=== PATIENT | female | born 1945 | race Two or more races ===

== ENCOUNTER → 2017-10-10 | Outpatient (CLI) | payer BC ==
[2017-10-10 14:07] LABS: ADD MAN DIFF? NO
[2017-10-10 14:17] LABS: BILIRUBIN,URINE NEGATIVE (NEG); CLARITY,URINE CLEAR; GLUCOSE,URINE NEGATIVE (NEG); NITRITE,URINE NEGATIVE (NEG); PH,URINE 7.5; PROTEIN,URINE NEGATIVE (NEG-TRACE); UROBILINOGEN,URINE 0.2 mg/dL (0.2 mg/dL)
[2017-10-10 14:19] LABS: BASO % 1 % (0-3); EOS # 0.2 x10^3/uL (0.0-0.7); EOS % 3 % (0-3); LYMPH # 1.2 x10^3/uL (1.0-4.8); LYMPH % 18 % (24-48); MEAN CORPUSCULAR HEMOGLOBIN 29 pg (25-35); MEAN CORPUSCULAR HGB CONC 33 g/dL (31-37); MEAN CORPUSCULAR VOLUME 88 fL (79-100); MONO # 0.4 x10^3/uL (0.0-1.1); MONO % 6 % (0-9); NEUT % 73 % (31-73); PLATELET COUNT 232 x10^3/uL (140-400); RED BLOOD COUNT 5.46 x10^6/uL (3.50-5.40); RED CELL DISTRIBUTION WIDTH 14.8 % (11.5-14.5); WHITE BLOOD COUNT 6.8 x10^3/uL (4.0-11.0)
[2017-10-10 14:22] LABS: COLOR,URINE STRAW
[2017-10-10 14:24] LABS: BACTERIA,URINE 0 /HPF (0-FEW); RBC,URINE RARE /HPF (0-2); SQUAMOUS EPITHELIAL CELL,UR OCC /LPF; WBC,URINE 0 /HPF (0-4)
[2017-10-10 14:27] LABS: PARTIAL THROMBOPLASTIN TIME 29 SEC (24-38); PROTHROMBIN TIME PATIENT 12.2 SEC (11.7-14.0)
[2017-10-10 14:35] LABS: ALBUMIN 3.9 g/dL (3.4-5.0); ANION GAP 7 (6-14); BLOOD UREA NITROGEN 18 mg/dL (7-20); CALCIUM 9.4 mg/dL (8.5-10.1); CARBON DIOXIDE 31 mmol/L (21-32); CHLORIDE 101 mmol/L (98-107); CREATININE 0.8 mg/dL (0.6-1.0); GFR 70.9; GLUCOSE 87 mg/dL (70-99); SODIUM 139 mmol/L (136-145)
[2017-10-10 15:28] LABS: SEDIMENTATION RATE 8 (0-25)
== END | disposition home or self-care (01) ==
LOC: SURGPAT 13:22
DX: Z01.818 Encounter for other preprocedural examination (principal); M25.78 Osteophyte, vertebrae
CPT/HCPCS: 71046; 80048; 81001; 82040; 82306; 83036; 85025; 85610; 85651; 85730; 93005

== ENCOUNTER 2017-11-01 05:35 | Inpatient (IN) | payer BC, MEDICARE ==
[2017-11-01 06:37] LABS: POC GLUCOSE 91 mg/dL (70-99)
[2017-11-01] MEDS: IV RINGERS,LACTATED 1000ML 1,000 ML IV (06:42)
[2017-11-01] MEDS ORDERED: LIDOCAINE 2% PF Vial for OR 5 ML VIAL. (06:58)
[2017-11-01] MEDS ORDERED: PROPOFOL 20 ML IV ×2 (06:58→07:21)
[2017-11-01] MEDS ORDERED: fentaNYL PF VIAL 250 MCG/5 ML VIAL (06:59)
[2017-11-01] MEDS ORDERED: MORPHINE SULFATE 2 MG/ML DISP.SYRIN. IV ×2 (07:00→09:45)
[2017-11-01] MEDS ORDERED: LIDOCAINE 1% PF 2 ML VIAL. ID (07:00)
[2017-11-01] MEDS ORDERED: fentaNYL PF VIAL 100 MCG/2 ML VIAL IV ×4 (07:00→09:45)
[2017-11-01] MEDS ORDERED: PROCHLORPERAZINE 10 MG/2 ML VIAL. IV (07:00)
[2017-11-01] MEDS ORDERED: ONDANSETRON PF 4 MG/2 ML VIAL. IV (07:00)
[2017-11-01] MEDS ORDERED: DEXAMETHASONE SOD PHOS 4 MG/ML VIAL (07:03)
[2017-11-01] MEDS: SCOPOLAMINE 1.5MG PATCH. TD (07:10)
[2017-11-01] MEDS: DEXAMETHASONE SOD PHOS 4 MG/ML VIAL IV (07:14)
[2017-11-01] MEDS ORDERED: DEXAMETHASONE SOD PHOS 20 MG/5 ML VIAL. IV (07:15)
[2017-11-01] MEDS: TRANEXAMIC ACID 1,000 MG in IV NORMAL SALINE 50ML 50 ML INJ ×2 (07:48→08:48)
[2017-11-01] MEDS: MORPHINE SULFATE 5 MG, KETOROLAC 30 MG, ROPIVacaine 0.5% PF 60 ML, EPINEPHrine 0.5 MG i... INT ART (08:04)
[2017-11-01] MEDS: TOBRAMYCIN POWDER 1.2 GM VIAL. (08:04)
[2017-11-01] MEDS: VANCOMYCIN 1 GM VIAL. (08:04)
[2017-11-01] MEDS ORDERED: CALCIUM CARBONATE 500 MG TAB.CHEW PO (09:45)
[2017-11-01] MEDS ORDERED: DEXTROSE 50% 25 GM / 50ML DISP.SYRIN. IV (09:45)
[2017-11-01] MEDS ORDERED: HYDROcodone/APAP 10/325 1 TAB TABLET PO (09:45)
[2017-11-01] MEDS ORDERED: oxyCODONE/APAP 5/325 1 TAB TABLET PO (09:45)
[2017-11-01] MEDS ORDERED: ACETAMINOPHEN 325 MG TABLET. PO (09:45)
[2017-11-01] MEDS ORDERED: traMADol 50 MG TABLET PO (09:45)
[2017-11-01] MEDS ORDERED: 0.9 % SODIUM CHLORIDE 10 ML DISP.SYRIN. IV (09:45)
[2017-11-01] MEDS ORDERED: MORPHINE SULFATE 10 MG/ML VIAL. IV (09:45)
[2017-11-01] MEDS ORDERED: METOCLOPRAMIDE HCL 10 MG/2 ML VIAL. IV (09:45)
[2017-11-01] MEDS ORDERED: MORPHINE SULFATE 4 MG/ML DISP.SYRIN. IV ×2 (09:45)
[2017-11-01] MEDS ORDERED: diphenhydrAMINE 50 MG/ML VIAL IV (09:45)
[2017-11-01] MEDS ORDERED: oxyCODONE/APAP 7.5/325 1 TAB TABLET PO (09:45)
[2017-11-01] MEDS ORDERED: ZOLPIDEM TARTRATE 12.5 MG PO (10:00)
[2017-11-01 11:22] LABS: POC GLUCOSE 238 mg/dL (70-99)
[2017-11-01 11:25] LABS: POC GLUCOSE 248 mg/dL (70-99)
[2017-11-01] MEDS: INSULIN ASPART 100 UNIT/ML 10ML VIAL. SQ (11:30)
[2017-11-01 11:47] LABS: POC GLUCOSE 237 mg/dL (70-99)
[2017-11-01] MEDS: IV DEXTROSE 5 %-0.45 % NACL 1,000 ML IV ×2 (12:00→19:30)
[2017-11-01 17:00] LABS: POC GLUCOSE 159 mg/dL (70-99)
[2017-11-01] MEDS: FERROUS SULFATE 325 MG TABLET. PO (17:23)
[2017-11-01] MEDS: HYDROcodone/APAP 7.5/325MG 1 TAB TABLET PO ×2 (17:33→23:37)
[2017-11-01] MEDS: KETOROLAC 30 MG, BUPIVACAINE MPF 0.25% 20 ML, EPINEPHrine 0.5 MG in TOTAL VOLUME SYRING... INT ART (17:33)
[2017-11-01 20:55] LABS: POC GLUCOSE 168 mg/dL (70-99)
[2017-11-01] MEDS: ASPIRIN ENTERIC COATED 325 MG TABLET.DR. PO (20:55)
[2017-11-01] MEDS: SIMVASTATIN 20 MG TABLET PO (20:55)
[2017-11-01] MEDS: CELECOXIB 100 MG CAPSULE. PO (20:55)
[2017-11-01] MEDS: ZOLPIDEM 5 MG TABLET. PO ×2 (22:14→23:38)
[2017-11-01] MEDS: traMADol 50 MG TABLET PO (22:15)
[2017-11-02] MEDS: HYDROcodone/APAP 7.5/325MG 1 TAB TABLET PO ×5 (02:34→20:59)
[2017-11-02] MEDS: KETOROLAC 30 MG, BUPIVACAINE MPF 0.25% 20 ML, EPINEPHrine 0.5 MG in TOTAL VOLUME SYRING... INT ART (05:32)
[2017-11-02] MEDS: traMADol 50 MG TABLET PO ×2 (05:40→21:01)
[2017-11-02] MEDS ORDERED: MAGNESIUM HYDROXIDE 2,400 MG/30 ML ORAL.SUSP. PO (06:00)
[2017-11-02] MEDS: LEVOTHYROXINE 100 MCG TABLET PO (06:09)
[2017-11-02] MEDS: IV DEXTROSE 5 %-0.45 % NACL 1,000 ML IV (08:00)
[2017-11-02] MEDS: FERROUS SULFATE 325 MG TABLET. PO ×2 (08:45→17:06)
[2017-11-02] MEDS: CHOLECALCIFEROL (VITAMIN D3) 5,000 UNIT CAPSULE PO (08:45)
[2017-11-02] MEDS: TRIAMTERENE/HCTZ 37.5/25MG TABLET. PO (08:45)
[2017-11-02] MEDS: MULTIVITAMIN with MINERAL TABLET. PO (08:46)
[2017-11-02] MEDS: ASPIRIN ENTERIC COATED 325 MG TABLET.DR. PO ×2 (08:46→21:00)
[2017-11-02] MEDS: CELECOXIB 100 MG CAPSULE. PO ×2 (08:46→21:01)
[2017-11-02] MEDS: POTASSIUM CHLORIDE 10 MEQ TABLET.ER. PO (08:46)
[2017-11-02] MEDS: SERTRALINE 50 MG TABLET. PO (08:46)
[2017-11-02] MEDS: SENNOSIDES/DOCUSATE 8.6/50MG TABLET. PO (08:46)
[2017-11-02] MEDS: GLIMEPIRIDE 2 MG TABLET. PO (08:46)
[2017-11-02] MEDS: LOSARTAN POTASSIUM 50 MG TABLET. PO (08:47)
[2017-11-02 11:39] LABS: POC GLUCOSE 82 mg/dL (70-99)
[2017-11-02] MEDS ORDERED: BISACODYL 10 MG SUPP.RECT. PR (16:00)
[2017-11-02 16:24] LABS: POC GLUCOSE 69 mg/dL (70-99)
[2017-11-02 20:33] LABS: POC GLUCOSE 117 mg/dL (70-99)
[2017-11-02] MEDS: SIMVASTATIN 20 MG TABLET PO (21:00)
[2017-11-02] MEDS: ZOLPIDEM 5 MG TABLET. PO (21:11)
[2017-11-03] MEDS: HYDROcodone/APAP 7.5/325MG 1 TAB TABLET PO ×6 (02:49→19:28)
[2017-11-03] MEDS: LEVOTHYROXINE 100 MCG TABLET PO (06:01)
[2017-11-03] MEDS: traMADol 50 MG TABLET PO ×3 (06:02→19:28)
[2017-11-03 07:43] LABS: POC GLUCOSE 113 mg/dL (70-99)
[2017-11-03] MEDS: CELECOXIB 100 MG CAPSULE. PO ×2 (08:20→20:37)
[2017-11-03] MEDS: ASPIRIN ENTERIC COATED 325 MG TABLET.DR. PO ×2 (08:20→20:36)
[2017-11-03] MEDS: TRIAMTERENE/HCTZ 37.5/25MG TABLET. PO (08:20)
[2017-11-03] MEDS: MULTIVITAMIN with MINERAL TABLET. PO (08:20)
[2017-11-03] MEDS: POTASSIUM CHLORIDE 10 MEQ TABLET.ER. PO (08:21)
[2017-11-03] MEDS: CHOLECALCIFEROL (VITAMIN D3) 5,000 UNIT CAPSULE PO (08:21)
[2017-11-03] MEDS: GLIMEPIRIDE 2 MG TABLET. PO (08:21)
[2017-11-03] MEDS: FERROUS SULFATE 325 MG TABLET. PO ×2 (08:21→16:29)
[2017-11-03] MEDS: SENNOSIDES/DOCUSATE 8.6/50MG TABLET. PO (08:23)
[2017-11-03] MEDS: SERTRALINE 50 MG TABLET. PO (08:23)
[2017-11-03] MEDS: LOSARTAN POTASSIUM 50 MG TABLET. PO (08:23)
[2017-11-03 09:08] LABS: MEAN CORPUSCULAR HGB CONC 33 g/dL (31-37)
[2017-11-03 11:18] LABS: POC GLUCOSE 111 mg/dL (70-99)
[2017-11-03 15:36] LABS: POC GLUCOSE 115 mg/dL (70-99)
[2017-11-03] MEDS: SIMVASTATIN 20 MG TABLET PO (20:37)
[2017-11-03 21:17] LABS: POC GLUCOSE 75 mg/dL (70-99)
[2017-11-03] MEDS: ZOLPIDEM 5 MG TABLET. PO (21:55)
[2017-11-04] MEDS: HYDROcodone/APAP 7.5/325MG 1 TAB TABLET PO ×3 (03:37→15:36)
[2017-11-04] MEDS: LEVOTHYROXINE 100 MCG TABLET PO (05:57)
[2017-11-04 08:24] LABS: POC GLUCOSE 117 mg/dL (70-99)
[2017-11-04] MEDS: TRIAMTERENE/HCTZ 37.5/25MG TABLET. PO (08:47)
[2017-11-04] MEDS: ASPIRIN ENTERIC COATED 325 MG TABLET.DR. PO (08:47)
[2017-11-04] MEDS: GLIMEPIRIDE 2 MG TABLET. PO (08:47)
[2017-11-04] MEDS: CHOLECALCIFEROL (VITAMIN D3) 5,000 UNIT CAPSULE PO (08:47)
[2017-11-04] MEDS: MULTIVITAMIN with MINERAL TABLET. PO (08:47)
[2017-11-04] MEDS: LOSARTAN POTASSIUM 50 MG TABLET. PO (08:48)
[2017-11-04] MEDS: FERROUS SULFATE 325 MG TABLET. PO (08:48)
[2017-11-04] MEDS: SERTRALINE 50 MG TABLET. PO (08:48)
[2017-11-04] MEDS: POTASSIUM CHLORIDE 10 MEQ TABLET.ER. PO (08:48)
[2017-11-04] MEDS: CELECOXIB 100 MG CAPSULE. PO (08:48)
[2017-11-04] MEDS: SENNOSIDES/DOCUSATE 8.6/50MG TABLET. PO (08:49)
[2017-11-04 11:37] LABS: POC GLUCOSE 147 mg/dL (70-99)
[2017-11-04] MEDS: traMADol 50 MG TABLET PO (12:46)
[2017-11-04 12:50] LABS: HEMATOCRIT 40.6 % (36.0-47.0); HEMOGLOBIN 13.3 g/dL (12.0-15.5); MEAN CORPUSCULAR HGB CONC 33 g/dL (31-37)
== END 2017-11-04 16:30 | disposition home health service (06) | DRG 470 ==
LOC: OPSVCIP 05:35 → 4 NORTH 11:32
PROVIDERS: Orthopaedic Surgery
PROC: 0SRD069 Replacement of Left Knee Joint with Oxidized Zirconium on Polyethylene Synthetic Substitute, Cemented, Open Approach (ICD-10-PCS; principal; 2017-11-01 07:10)
DX: M17.12 Unilateral primary osteoarthritis, left knee (principal); E03.9 Hypothyroidism, unspecified; E11.9 Type 2 diabetes mellitus without complications; I10 Essential (primary) hypertension; F41.9 Anxiety disorder, unspecified; Z96.651 Presence of right artificial knee joint; Z88.8 Allergy status to other drugs, medicaments and biological substances; Z91.041 Radiographic dye allergy status; Z82.3 Family history of stroke; Z82.49 Family history of ischemic heart disease and other diseases of the circulatory system; Z83.3 Family history of diabetes mellitus; Z80.9 Family history of malignant neoplasm, unspecified; Z98.49 Cataract extraction status, unspecified eye; Z90.89 Acquired absence of other organs; Z90.49 Acquired absence of other specified parts of digestive tract
CPT/HCPCS: 36415; 73560; 82962; 85014; 85018; 86850; 86900; 86901; 88305; 88311; 97110-GP; 97116-GP; 97162-GP; 97166-GO; 97530-GP; 97535-GO; A7015; C1713; J0171; J0690; J1100; J1885; J2001; J2270; J2704; J2795; J3010; J3260; J3370; J3490; J7030; J7120

== ENCOUNTER → 2017-12-26 | Outpatient (CLI) | payer BC, MEDICARE ==
[2017-12-22 15:00] VITALS: BP 122/40
[~2017-12-26] MED LIST: CHOL500016 PO; CLIN300C8 PO; FERR325T72 PO; GLIM4TAB PO; IBUP200T58 PO; LEVO100T5 PO; LOSA50TA7 PO; POTA10TA12 PO; SERT50TA PO; SIMV20TA PO; TRAM50TA PO; TRIA1TAB5 PO; VALS80TA3 PO; ZOLP12.52 PO
== END | disposition home or self-care (01) ==
LOC: PMGWOUND 10:50
PROVIDERS: ATTEND Emergency Medicine Undersea and Hyperbaric Medicine
DX: T81.31XA Disruption of external operation (surgical) wound, not elsewhere classified, initial encounter (principal); E11.36 Type 2 diabetes mellitus with diabetic cataract; E11.52 Type 2 diabetes mellitus with diabetic peripheral angiopathy with gangrene; I96 Gangrene, not elsewhere classified; F41.9 Anxiety disorder, unspecified; F32.9 Major depressive disorder, single episode, unspecified; M19.90 Unspecified osteoarthritis, unspecified site; M79.7 Fibromyalgia; E78.5 Hyperlipidemia, unspecified; E03.9 Hypothyroidism, unspecified; E66.9 Obesity, unspecified; Z68.36 Body mass index [BMI] 36.0-36.9, adult; Z79.4 Long term (current) use of insulin; Z90.49 Acquired absence of other specified parts of digestive tract; Y83.8 Other surgical procedures as the cause of abnormal reaction of the patient, or of later complication, without mention of misadventure at the time of the procedure; Y92.89 Other specified places as the place of occurrence of the external cause
CPT/HCPCS: 97597; 97598; 97605

== ENCOUNTER → 2018-01-02 | Outpatient (CLI) | payer BC, MEDICARE ==
[2017-12-22 15:00] VITALS: BP 122/40
== END | disposition home or self-care (01) ==
LOC: PMGWOUND 13:00
PROVIDERS: ATTEND Emergency Medicine Undersea and Hyperbaric Medicine
DX: T81.31XD Disruption of external operation (surgical) wound, not elsewhere classified, subsequent encounter (principal); E11.36 Type 2 diabetes mellitus with diabetic cataract; E11.52 Type 2 diabetes mellitus with diabetic peripheral angiopathy with gangrene; I96 Gangrene, not elsewhere classified; I10 Essential (primary) hypertension; F32.9 Major depressive disorder, single episode, unspecified; F41.9 Anxiety disorder, unspecified; E78.5 Hyperlipidemia, unspecified; M79.7 Fibromyalgia; M19.90 Unspecified osteoarthritis, unspecified site; E03.9 Hypothyroidism, unspecified; E66.9 Obesity, unspecified; Z68.36 Body mass index [BMI] 36.0-36.9, adult; Z79.4 Long term (current) use of insulin; Z96.653 Presence of artificial knee joint, bilateral; Z90.49 Acquired absence of other specified parts of digestive tract; Z91.041 Radiographic dye allergy status; Z88.8 Allergy status to other drugs, medicaments and biological substances; Y83.8 Other surgical procedures as the cause of abnormal reaction of the patient, or of later complication, without mention of misadventure at the time of the procedure
CPT/HCPCS: 97605

== ENCOUNTER → 2018-01-09 | Outpatient (CLI) | payer BC, MEDICARE ==
[2017-12-22 15:00] VITALS: BP 122/40
== END | disposition home or self-care (01) ==
LOC: PMGWOUND 11:24
PROVIDERS: ATTEND Emergency Medicine Undersea and Hyperbaric Medicine
DX: T81.31XD Disruption of external operation (surgical) wound, not elsewhere classified, subsequent encounter (principal); E11.36 Type 2 diabetes mellitus with diabetic cataract; E11.52 Type 2 diabetes mellitus with diabetic peripheral angiopathy with gangrene; I96 Gangrene, not elsewhere classified; I10 Essential (primary) hypertension; F41.9 Anxiety disorder, unspecified; F32.9 Major depressive disorder, single episode, unspecified; M79.7 Fibromyalgia; M19.90 Unspecified osteoarthritis, unspecified site; E78.5 Hyperlipidemia, unspecified; E03.9 Hypothyroidism, unspecified; E66.9 Obesity, unspecified; Z68.36 Body mass index [BMI] 36.0-36.9, adult; Z79.4 Long term (current) use of insulin; Z90.49 Acquired absence of other specified parts of digestive tract; Z88.8 Allergy status to other drugs, medicaments and biological substances; Y83.8 Other surgical procedures as the cause of abnormal reaction of the patient, or of later complication, without mention of misadventure at the time of the procedure
CPT/HCPCS: 11042

== ENCOUNTER → 2018-01-16 | Outpatient (CLI) | payer BC, MEDICARE ==
[2017-12-22 15:00] VITALS: BP 122/40
== END | disposition home or self-care (01) ==
LOC: PMGWOUND 12:55
PROVIDERS: ATTEND Emergency Medicine Undersea and Hyperbaric Medicine
DX: T81.31XD Disruption of external operation (surgical) wound, not elsewhere classified, subsequent encounter (principal); E11.52 Type 2 diabetes mellitus with diabetic peripheral angiopathy with gangrene; I96 Gangrene, not elsewhere classified; E11.36 Type 2 diabetes mellitus with diabetic cataract; I10 Essential (primary) hypertension; F41.9 Anxiety disorder, unspecified; F32.9 Major depressive disorder, single episode, unspecified; M79.7 Fibromyalgia; E03.9 Hypothyroidism, unspecified; E78.5 Hyperlipidemia, unspecified; E66.9 Obesity, unspecified; H91.90 Unspecified hearing loss, unspecified ear; M19.90 Unspecified osteoarthritis, unspecified site; Z68.36 Body mass index [BMI] 36.0-36.9, adult; Z90.49 Acquired absence of other specified parts of digestive tract; Z79.4 Long term (current) use of insulin; Y83.8 Other surgical procedures as the cause of abnormal reaction of the patient, or of later complication, without mention of misadventure at the time of the procedure
CPT/HCPCS: 97597

== ENCOUNTER → 2018-01-23 | Outpatient (CLI) | payer BC, MEDICARE ==
[2017-12-22 15:00] VITALS: BP 122/40
[2018-01-23 12:57] LABS: BASO % 1 % (0-3); EOS # 0.2 x10^3/uL (0.0-0.7); EOS % 3 % (0-3); HEMATOCRIT 41.6 % (36.0-47.0); HEMOGLOBIN 14.2 g/dL (12.0-15.5); LYMPH # 1.6 x10^3/uL (1.0-4.8); LYMPH % 20 % (24-48); MEAN CORPUSCULAR HEMOGLOBIN 29 pg (25-35); MEAN CORPUSCULAR HGB CONC 34 g/dL (31-37); MEAN CORPUSCULAR VOLUME 84 fL (79-100); MONO # 0.5 x10^3/uL (0.0-1.1); MONO % 7 % (0-9); NEUT # 5.7 x10^3uL (1.8-7.7); NEUT % 71 % (31-73); PLATELET COUNT 374 x10^3/uL (140-400); RED BLOOD COUNT 4.94 x10^6/uL (3.50-5.40)
[2018-01-23 17:38] LABS: ALBUMIN 3.7 g/dL (3.4-5.0); ALBUMIN/GLOBULIN RATIO 0.7 (1.0-1.7); C-REACTIVE PROTEIN 36.6 mg/L (0-3.3); CALCIUM 9.8 mg/dL (8.5-10.1); CREATININE 0.9 mg/dL (0.6-1.0); GFR 61.7; POTASSIUM 4.3 mmol/L (3.5-5.1); TOTAL BILIRUBIN 0.3 mg/dL (0.2-1.0); TOTAL PROTEIN 9.1 g/dL (6.4-8.2)
== END | disposition home or self-care (01) ==
LOC: PMGWOUND 11:33
PROVIDERS: ATTEND Emergency Medicine Undersea and Hyperbaric Medicine
DX: T81.31XD Disruption of external operation (surgical) wound, not elsewhere classified, subsequent encounter (principal); E11.52 Type 2 diabetes mellitus with diabetic peripheral angiopathy with gangrene; I96 Gangrene, not elsewhere classified; E11.36 Type 2 diabetes mellitus with diabetic cataract; I10 Essential (primary) hypertension; F41.9 Anxiety disorder, unspecified; F32.9 Major depressive disorder, single episode, unspecified; M79.7 Fibromyalgia; E03.9 Hypothyroidism, unspecified; E78.5 Hyperlipidemia, unspecified; E66.9 Obesity, unspecified; H91.90 Unspecified hearing loss, unspecified ear; M19.90 Unspecified osteoarthritis, unspecified site; Z68.36 Body mass index [BMI] 36.0-36.9, adult; Z90.49 Acquired absence of other specified parts of digestive tract; Z79.4 Long term (current) use of insulin; Z79.899 Other long term (current) drug therapy; Z88.8 Allergy status to other drugs, medicaments and biological substances; Z96.653 Presence of artificial knee joint, bilateral; Y83.8 Other surgical procedures as the cause of abnormal reaction of the patient, or of later complication, without mention of misadventure at the time of the procedure
CPT/HCPCS: 36415; 80053; 85025; 85651; 86140; 97597

== ENCOUNTER → 2018-01-30 | Outpatient (CLI) | payer BC, MEDICARE ==
[2017-12-22 15:00] VITALS: BP 122/40
== END | disposition home or self-care (01) ==
LOC: PMGWOUND 11:25
PROVIDERS: ATTEND Emergency Medicine Undersea and Hyperbaric Medicine
DX: T81.31XD Disruption of external operation (surgical) wound, not elsewhere classified, subsequent encounter (principal); E11.52 Type 2 diabetes mellitus with diabetic peripheral angiopathy with gangrene; I96 Gangrene, not elsewhere classified; E11.36 Type 2 diabetes mellitus with diabetic cataract; I10 Essential (primary) hypertension; F32.9 Major depressive disorder, single episode, unspecified; M79.7 Fibromyalgia; F41.9 Anxiety disorder, unspecified; E78.5 Hyperlipidemia, unspecified; M19.90 Unspecified osteoarthritis, unspecified site; E03.9 Hypothyroidism, unspecified; E66.9 Obesity, unspecified; Z68.36 Body mass index [BMI] 36.0-36.9, adult; Z79.4 Long term (current) use of insulin; Z90.49 Acquired absence of other specified parts of digestive tract; Y83.8 Other surgical procedures as the cause of abnormal reaction of the patient, or of later complication, without mention of misadventure at the time of the procedure
CPT/HCPCS: 11042

== ENCOUNTER → 2018-02-06 | Outpatient (CLI) | payer BC, MEDICARE ==
[2017-12-22 15:00] VITALS: BP 122/40
== END | disposition home or self-care (01) ==
LOC: PMGWOUND 11:21
PROVIDERS: ATTEND Emergency Medicine Undersea and Hyperbaric Medicine
DX: T81.31XD Disruption of external operation (surgical) wound, not elsewhere classified, subsequent encounter (principal); L23.9 Allergic contact dermatitis, unspecified cause; E11.36 Type 2 diabetes mellitus with diabetic cataract; E11.52 Type 2 diabetes mellitus with diabetic peripheral angiopathy with gangrene; I96 Gangrene, not elsewhere classified; F41.9 Anxiety disorder, unspecified; G47.33 Obstructive sleep apnea (adult) (pediatric); F32.9 Major depressive disorder, single episode, unspecified; M79.7 Fibromyalgia; E78.5 Hyperlipidemia, unspecified; E03.9 Hypothyroidism, unspecified; M19.90 Unspecified osteoarthritis, unspecified site; H91.90 Unspecified hearing loss, unspecified ear; E66.9 Obesity, unspecified; Z68.36 Body mass index [BMI] 36.0-36.9, adult; Z87.891 Personal history of nicotine dependence; Z79.4 Long term (current) use of insulin; Z90.49 Acquired absence of other specified parts of digestive tract; Y83.8 Other surgical procedures as the cause of abnormal reaction of the patient, or of later complication, without mention of misadventure at the time of the procedure
CPT/HCPCS: 87071; 87075; 87186; 99214; G0463

== ENCOUNTER → 2018-02-13 | Outpatient (CLI) | payer BC, MEDICARE ==
[2017-12-22 15:00] VITALS: BP 122/40
== END | disposition home or self-care (01) ==
LOC: PMGWOUND 11:54
PROVIDERS: ATTEND Emergency Medicine Undersea and Hyperbaric Medicine
DX: T81.31XD Disruption of external operation (surgical) wound, not elsewhere classified, subsequent encounter (principal); E11.36 Type 2 diabetes mellitus with diabetic cataract; E11.52 Type 2 diabetes mellitus with diabetic peripheral angiopathy with gangrene; I96 Gangrene, not elsewhere classified; I10 Essential (primary) hypertension; F41.9 Anxiety disorder, unspecified; F32.9 Major depressive disorder, single episode, unspecified; E03.9 Hypothyroidism, unspecified; E78.5 Hyperlipidemia, unspecified; M79.7 Fibromyalgia; G47.33 Obstructive sleep apnea (adult) (pediatric); H91.90 Unspecified hearing loss, unspecified ear; M19.90 Unspecified osteoarthritis, unspecified site; E66.9 Obesity, unspecified; Z68.36 Body mass index [BMI] 36.0-36.9, adult; Z79.4 Long term (current) use of insulin; Z87.891 Personal history of nicotine dependence; Z90.49 Acquired absence of other specified parts of digestive tract; Y83.8 Other surgical procedures as the cause of abnormal reaction of the patient, or of later complication, without mention of misadventure at the time of the procedure
CPT/HCPCS: 11042

== ENCOUNTER → 2018-02-20 | Outpatient (CLI) | payer BC, MEDICARE ==
[2017-12-22 15:00] VITALS: BP 122/40
== END | disposition home or self-care (01) ==
LOC: PMGWOUND 12:04
PROVIDERS: ATTEND Emergency Medicine Undersea and Hyperbaric Medicine
DX: T81.31XD Disruption of external operation (surgical) wound, not elsewhere classified, subsequent encounter (principal); E11.36 Type 2 diabetes mellitus with diabetic cataract; E11.52 Type 2 diabetes mellitus with diabetic peripheral angiopathy with gangrene; I96 Gangrene, not elsewhere classified; F41.9 Anxiety disorder, unspecified; E78.5 Hyperlipidemia, unspecified; M79.7 Fibromyalgia; M19.90 Unspecified osteoarthritis, unspecified site; F32.9 Major depressive disorder, single episode, unspecified; E03.9 Hypothyroidism, unspecified; G47.33 Obstructive sleep apnea (adult) (pediatric); E66.9 Obesity, unspecified; Z68.36 Body mass index [BMI] 36.0-36.9, adult; Z79.4 Long term (current) use of insulin; Z87.891 Personal history of nicotine dependence; Y83.8 Other surgical procedures as the cause of abnormal reaction of the patient, or of later complication, without mention of misadventure at the time of the procedure; Z90.49 Acquired absence of other specified parts of digestive tract
CPT/HCPCS: 97597

== ENCOUNTER → 2018-02-27 | Outpatient (CLI) | payer BC, MEDICARE ==
[2017-12-22 15:00] VITALS: BP 122/40
[~2018-02-27] MED LIST changes: +LOSA-73 PO; -LOSA50TA7 PO
== END | disposition home or self-care (01) ==
LOC: PMGWOUND 13:05
PROVIDERS: ATTEND Emergency Medicine Undersea and Hyperbaric Medicine
DX: T81.31XD Disruption of external operation (surgical) wound, not elsewhere classified, subsequent encounter (principal); E11.36 Type 2 diabetes mellitus with diabetic cataract; E11.52 Type 2 diabetes mellitus with diabetic peripheral angiopathy with gangrene; I96 Gangrene, not elsewhere classified; I10 Essential (primary) hypertension; F41.9 Anxiety disorder, unspecified; M79.7 Fibromyalgia; G47.33 Obstructive sleep apnea (adult) (pediatric); E78.5 Hyperlipidemia, unspecified; E03.9 Hypothyroidism, unspecified; F32.9 Major depressive disorder, single episode, unspecified; M19.90 Unspecified osteoarthritis, unspecified site; H91.90 Unspecified hearing loss, unspecified ear; E66.9 Obesity, unspecified; Z68.36 Body mass index [BMI] 36.0-36.9, adult; Z90.49 Acquired absence of other specified parts of digestive tract; Z87.891 Personal history of nicotine dependence; Z79.4 Long term (current) use of insulin; Y83.8 Other surgical procedures as the cause of abnormal reaction of the patient, or of later complication, without mention of misadventure at the time of the procedure
CPT/HCPCS: 11042

== ENCOUNTER → 2018-03-13 | Outpatient (CLI) | payer BC, MEDICARE ==
[2017-12-22 15:00] VITALS: BP 122/40
== END | disposition home or self-care (01) ==
LOC: PMGWOUND 12:55
PROVIDERS: ATTEND Emergency Medicine Undersea and Hyperbaric Medicine
DX: T81.31XD Disruption of external operation (surgical) wound, not elsewhere classified, subsequent encounter (principal); E11.36 Type 2 diabetes mellitus with diabetic cataract; E11.52 Type 2 diabetes mellitus with diabetic peripheral angiopathy with gangrene; I96 Gangrene, not elsewhere classified; I10 Essential (primary) hypertension; E78.5 Hyperlipidemia, unspecified; M79.7 Fibromyalgia; F32.9 Major depressive disorder, single episode, unspecified; F41.9 Anxiety disorder, unspecified; E03.9 Hypothyroidism, unspecified; G47.33 Obstructive sleep apnea (adult) (pediatric); H91.90 Unspecified hearing loss, unspecified ear; M19.90 Unspecified osteoarthritis, unspecified site; Z79.4 Long term (current) use of insulin; Z87.891 Personal history of nicotine dependence; Z90.49 Acquired absence of other specified parts of digestive tract; E66.9 Obesity, unspecified; Z68.36 Body mass index [BMI] 36.0-36.9, adult; Y83.8 Other surgical procedures as the cause of abnormal reaction of the patient, or of later complication, without mention of misadventure at the time of the procedure
CPT/HCPCS: 97597

== ENCOUNTER → 2018-03-24 | Day surgery (SDC) | payer BC, MEDICARE ==
[~2018-03-24] VITALS: Ht 152.4 cm; Wt 83.9 kg
[~2018-03-24] MED LIST changes: +BUPIVAC MPF-EPI 0.5%-1:200000 30 ML VIAL. ONE; +HYDROmorphone 2 MG/ML VIAL IV PRN; +IV RINGERS,LACTATED 1000ML 1,000 ML IV SCH; +LIDOCAINE 1% PF 2 ML VIAL. ID PRN; +MORPHINE SULFATE 4 MG/ML VIAL. IV PRN; +ONDANSETRON PF 4 MG/2 ML VIAL. IV PRN; +PROCHLORPERAZINE 10 MG/2 ML VIAL. IV PRN; +SCOPOLAMINE 1.5MG PATCH. TD ONE; +SILVER NITRATE STICK TP ONE; +TRIA1TAB3 PO; +ZOLP10TA PO; +ceFAZolin 2GM PREMIX 2 GM/50 ML BAG IV ONE; +fentaNYL PF VIAL 100 MCG/2 ML VIAL IV PRN
[2018-03-24 11:07] VITALS: BP 138/72
--- NOTE | 2018-03-24 12:12 | NUR ---
Dr De La Cruz came to see patient pre-op and decided to treat pt left knee wound today with silver nitrate strips and new dressing and cancelled surgery for today. patient instructed to follow up with wound care center and his office as needed , pt dismissed.
--- NOTE | 2018-03-24 12:31 | PDOC ---
SURGICAL PROGRESS NOTE Subjective Pt is doing well. Extensive wound improvement over the last week. Wound is covered, although some serous drainage and proud flesh. This was ablated with silver nitrate. Pt to f/u in wound care next week. Will cancel skin graft. Vital Signs Vital Signs Date Time Temp Pulse Resp B/P (MAP) Pulse Ox O2 Delivery O2 Flow Rate FiO2 03/24/18 11:07 97.1 60 20 138/72 94 Room Air 97.1 Labs Laboratory Tests Test 03/24/18 11:05 Glucose (Fingerstick) 90 mg/dL (70-99) Laboratory Tests Test 03/24/18 11:05 Glucose (Fingerstick) 90 mg/dL (70-99) JOSE DAVID LOPEZ MD Mar 24, 2018 12:31
== END | disposition home or self-care (01) ==
LOC: SURG 10:27
PROVIDERS: ATTEND Surgery
DX: Z48.01 Encounter for change or removal of surgical wound dressing (principal); Z53.8 Procedure and treatment not carried out for other reasons; Z98.890 Other specified postprocedural states; E11.9 Type 2 diabetes mellitus without complications; Z79.84 Long term (current) use of oral hypoglycemic drugs; Z79.899 Other long term (current) drug therapy; Z88.8 Allergy status to other drugs, medicaments and biological substances; Z91.041 Radiographic dye allergy status
CPT/HCPCS: 82962; J0690; J3490

== ENCOUNTER → 2018-03-27 | Outpatient (CLI) | payer BC, MEDICARE ==
[2018-03-24 11:07] VITALS: BP 138/72
[~2018-03-27] MED LIST changes: -BUPIVAC MPF-EPI 0.5%-1:200000 30 ML VIAL. ONE; -HYDROmorphone 2 MG/ML VIAL IV PRN; -IV RINGERS,LACTATED 1000ML 1,000 ML IV SCH; -LIDOCAINE 1% PF 2 ML VIAL. ID PRN; -MORPHINE SULFATE 4 MG/ML VIAL. IV PRN; -ONDANSETRON PF 4 MG/2 ML VIAL. IV PRN; -PROCHLORPERAZINE 10 MG/2 ML VIAL. IV PRN; -SCOPOLAMINE 1.5MG PATCH. TD ONE; -SILVER NITRATE STICK TP ONE; -ceFAZolin 2GM PREMIX 2 GM/50 ML BAG IV ONE; -fentaNYL PF VIAL 100 MCG/2 ML VIAL IV PRN
== END | disposition home or self-care (01) ==
LOC: PMGWOUND 10:50
PROVIDERS: ATTEND Emergency Medicine Undersea and Hyperbaric Medicine
DX: T81.31XD Disruption of external operation (surgical) wound, not elsewhere classified, subsequent encounter (principal); E11.36 Type 2 diabetes mellitus with diabetic cataract; E11.52 Type 2 diabetes mellitus with diabetic peripheral angiopathy with gangrene; I96 Gangrene, not elsewhere classified; I10 Essential (primary) hypertension; E78.5 Hyperlipidemia, unspecified; M79.7 Fibromyalgia; M19.90 Unspecified osteoarthritis, unspecified site; F32.9 Major depressive disorder, single episode, unspecified; F41.9 Anxiety disorder, unspecified; E03.9 Hypothyroidism, unspecified; G47.33 Obstructive sleep apnea (adult) (pediatric); H91.90 Unspecified hearing loss, unspecified ear; E66.9 Obesity, unspecified; Z68.36 Body mass index [BMI] 36.0-36.9, adult; Z79.4 Long term (current) use of insulin; Z87.891 Personal history of nicotine dependence; Z90.49 Acquired absence of other specified parts of digestive tract; Y83.8 Other surgical procedures as the cause of abnormal reaction of the patient, or of later complication, without mention of misadventure at the time of the procedure
CPT/HCPCS: 17250

== ENCOUNTER → 2018-04-03 | Outpatient (CLI) | payer BC, MEDICARE ==
[2018-03-24 11:07] VITALS: BP 138/72
== END | disposition home or self-care (01) ==
LOC: PMGWOUND 10:55
PROVIDERS: ATTEND Emergency Medicine Undersea and Hyperbaric Medicine
DX: T81.31XD Disruption of external operation (surgical) wound, not elsewhere classified, subsequent encounter (principal); E11.52 Type 2 diabetes mellitus with diabetic peripheral angiopathy with gangrene; I96 Gangrene, not elsewhere classified; E11.36 Type 2 diabetes mellitus with diabetic cataract; I10 Essential (primary) hypertension; M79.7 Fibromyalgia; M19.90 Unspecified osteoarthritis, unspecified site; E78.5 Hyperlipidemia, unspecified; F32.9 Major depressive disorder, single episode, unspecified; F41.9 Anxiety disorder, unspecified; E03.9 Hypothyroidism, unspecified; H91.90 Unspecified hearing loss, unspecified ear; G47.33 Obstructive sleep apnea (adult) (pediatric); E66.9 Obesity, unspecified; Z68.36 Body mass index [BMI] 36.0-36.9, adult; Z87.891 Personal history of nicotine dependence; Z90.49 Acquired absence of other specified parts of digestive tract; Y83.8 Other surgical procedures as the cause of abnormal reaction of the patient, or of later complication, without mention of misadventure at the time of the procedure
CPT/HCPCS: 11042

== ENCOUNTER → 2018-04-10 | Outpatient (CLI) | payer BC, MEDICARE ==
[2018-03-24 11:07] VITALS: BP 138/72
[~2018-04-10] MED LIST changes: +ASPI325T11 PO; +ATOR10TA60 PO; +CELE200C PO; +CEPH-263 PO; +DOXY100T PO; +FERR325T14 PO; +METF500T16 PO; +OXYC-411 PO; +OXYC1TAB22 PO
== END | disposition home or self-care (01) ==
LOC: PMGWOUND 12:00
PROVIDERS: ATTEND Emergency Medicine Undersea and Hyperbaric Medicine
DX: T81.31XD Disruption of external operation (surgical) wound, not elsewhere classified, subsequent encounter (principal); E11.36 Type 2 diabetes mellitus with diabetic cataract; E11.52 Type 2 diabetes mellitus with diabetic peripheral angiopathy with gangrene; I96 Gangrene, not elsewhere classified; E78.5 Hyperlipidemia, unspecified; I10 Essential (primary) hypertension; Z79.4 Long term (current) use of insulin; M79.7 Fibromyalgia; M19.90 Unspecified osteoarthritis, unspecified site; F32.9 Major depressive disorder, single episode, unspecified; F41.9 Anxiety disorder, unspecified; E03.9 Hypothyroidism, unspecified; G47.33 Obstructive sleep apnea (adult) (pediatric); H91.90 Unspecified hearing loss, unspecified ear; E66.9 Obesity, unspecified; Z87.891 Personal history of nicotine dependence; Z68.36 Body mass index [BMI] 36.0-36.9, adult; Z90.49 Acquired absence of other specified parts of digestive tract; Y83.8 Other surgical procedures as the cause of abnormal reaction of the patient, or of later complication, without mention of misadventure at the time of the procedure
CPT/HCPCS: 99213; G0463

== ENCOUNTER 2018-04-18 10:29 | Day surgery (SDC) | payer BC, MEDICARE ==
--- NOTE | 2018-04-17 17:42 | PDOC1 ---
History and Physical Date of Admission Date of Admission 04/18/18 Identification/Chief Complaint Chief Complaint Left knee open wound Source Source: Chart review History of Present Illness History of Present Illness Angelita is a 72-year-old with left total knee arthroplasty in October. She had wound care due to a small ulceration. There is still some drainage but it seems like synovial fluid now. 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 Past Medical History Past Medical History Hypertension, Hypothyroidism, Insomnia, Diabetes mellitus, Hypercholesterolemia , Panic attacks, Claustrophobic. Cardiovascular: HTN Psych: Anxiety Endocrine: Diabetes, Hypothyroidism Past Surgical History Past Surgical History left knee replacement 11/01/17, debridement of left knee wound 12/21/17, appendectomy , cholecystectomy , section , right knee replacement 2015 , cataract removal . Past Surgical History: Appendectomy, Cataract Removal, , Total knee replacement, Tonsillectomy Family History Family History Mother: , lung cancer, diagnosed with Diabetes, Hypertension. Father: , bladder cancer, Heart Disease. Brother: Diabetes. Sister: Diabetes. Family History: Cancer, Diabetes, Heart Disease, Hypertension, Stroke Social History Smoke: No ALCOHOL: none Drugs: None Current Medications Current Medications Current Medications Prochlorperazine Edisylate (Compazine) 5 mg PACU PRN PRN IV NAUSEA, MRX1; Start 04/18/18 at 07:00; Stop 04/19/18 at 06:59 Hydromorphone HCl (Dilaudid) 0.5 mg PRN Q10MIN PRN IV SEV PAIN, Second choice; Start 04/18/18 at 07:00; Stop 04/19/18 at 06:59 Lidocaine HCl (Xylocaine-Mpf 1% 2ml Vial) 2 ml PRN 1X PRN ID IV START; Start at 07:00; Stop 04/19/18 at 06:59 Ringer's Solution 1,000 ml @ 30 mls/hr Q24H IV ; Start 04/18/18 at 07:00; Stop 04/18/18 at 18:59 Morphine Sulfate (Morphine Sulfate) 1 mg PRN Q10MIN PRN IV SEVERE PAIN; Start 04/18/18 at 07:00; Stop 04/19/18 at 06:59 Fentanyl Citrate (Fentanyl 2ml Vial) 50 mcg PRN Q5MIN PRN IV MODERATE TO SEVERE PAIN; Start 04/18/18 at 07:00; Stop 04/19/18 at 06:59 Fentanyl Citrate (Fentanyl 2ml Vial) 25 mcg PRN Q5MIN PRN IV MILD PAIN; Start 04/18/18 at 07:00; Stop 04/19/18 at 06:59 Ondansetron HCl (Zofran) 4 mg PRN Q6HRS PRN IV NAUSEA/VOMITING; Start 04/18/18 at 07:00; Stop 04/19/18 at 06:59 Active Scripts Active Reported Celebrex (Celecoxib) 200 Mg Capsule 1 Cap PO DAILY Triamterene-Hctz 37.5-25 Mg Tb (Triamterene/Hydrochlorothiazid) 1 Each Tablet 1 Tab PO DAILY Ambien (Zolpidem Tartrate) 10 Mg Tablet 10 Mg PO HS PRN Losartan Potassium 50 Mg Tablet 50 Mg PO DAILY Zocor (Simvastatin) 20 Mg Tablet 20 Mg PO HS Tramadol Hcl 50 Mg Tablet 50 Mg PO QID PRN Vitamin D3 (Cholecalciferol (Vitamin D3)) 5,000 Unit Tablet 1 Tab PO DAILY Levothyroxine Sodium 100 Mcg Tablet 1 Tab PO UD Amaryl (Glimepiride) 4 Mg Tablet 4 Mg PO DAILY Zoloft (Sertraline Hcl) 50 Mg Tablet 50 Mg PO DAILY Allergies Allergies: Coded Allergies: Iodinated Contrast- Oral and IV Dye (Verified Allergy, Intermediate, Hives , 04/17/18) hydroxyzine (Verified Allergy, Intermediate, 04/17/18) hyper sulfamethoxazole (Verified Allergy, Intermediate, Rash, 04/17/18) trimethoprim (Verified Allergy, Intermediate, Rash, 04/17/18) omeprazole (Verified Adverse Reaction, Intermediate, Nausea and Vomiting, 04/17/18) ROS General: No: Chills, Night Sweats, Fatigue, Malaise PSYCHOLOGICAL ROS: No: Anxiety, Depression, Hallucinations Eyes: No Double vision HEENT: No: Heacaches, Sore Throat Hematological and Lymphatic: No: Bleeding Problems Respiratory: No: Cough, Shortness of breath, SOB with excertion Cardiovascular: No Chest Pain, No Palpitations Gastrointestinal: No Nausea, No Vomiting, No Diarrhea, No Constipation Musculoskeletal: No Joint Pain, No Muscle Pain Neurological: No Behavorial Changes, No Headaches Skin: Yes Skin Lesion Changes (the previous ulceration/open wound has mostly healed with wound care) Physical Exam General: Alert, Cooperative, No acute distress HEENT: Atraumatic Lungs: Normal air movement Heart: RRR Abdomen: Soft Extremities: No cyanosis, No edema, Normal pulses, Other (she has a pinpoint open wound where the prior ulcer was. There is synovial fluid but no evidence of infection) Skin: No breakdown, Other (pinpoint lesion left knee as above) Labs Labs ESR and CRP were ordered but I don't see those results yet in the chart. I will reassess those tomorrow. VTE Prophylaxis Ordered VTE Prophylaxis Devices: Yes VTE Pharmacological Prophylaxi: Yes Assessment/Plan Assessment/Plan We had trouble getting coverage of this previously but she has regrown abundant healthy tissue. 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 I recommended a trip to the operating room for aspiration under anesthesia, prior to antibiotics being given. I would plan to reopen the small fistula, and perform soft tissue closure to prevent further drainage. likely use a knee immobilizer postoperatively to prevent the closure from reopening. She agrees with this plan. CHAPARRO TADEO MD Apr 17, 2018 17:42
[~2018-04-18] VITALS: Ht 152.4 cm; Wt 85.3 kg
[~2018-04-18 10:29] MED LIST changes: -ASPI325T11 PO; -ATOR10TA60 PO; -CEPH-263 PO; -DOXY100T PO; -FERR325T14 PO; +HYDROmorphone 2 MG/ML VIAL IV PRN; +IV RINGERS,LACTATED 1000ML 1,000 ML IV SCH; +LIDOCAINE 1% PF 2 ML VIAL. ID PRN; -METF500T16 PO; +MORPHINE SULFATE 4 MG/ML VIAL. IV PRN; +ONDANSETRON PF 4 MG/2 ML VIAL. IV PRN; -OXYC-411 PO; -OXYC1TAB22 PO; +PROCHLORPERAZINE 10 MG/2 ML VIAL. IV PRN; +fentaNYL PF VIAL 100 MCG/2 ML VIAL IV PRN
[2018-04-18] MEDS ORDERED: CELE200C PO (11:01)
[2018-04-18 11:19] LABS: BASO # 0.1 x10^3/uL (0.0-0.2); BASO % 1 % (0-3); EOS # 0.2 x10^3/uL (0.0-0.7); EOS % 2 % (0-3); HEMATOCRIT 37.7 % (36.0-47.0); HEMOGLOBIN 12.7 g/dL (12.0-15.5); LYMPH # 1.9 x10^3/uL (1.0-4.8); LYMPH % 22 % (24-48); MEAN CORPUSCULAR HEMOGLOBIN 27 pg (25-35); MEAN CORPUSCULAR HGB CONC 34 g/dL (31-37); MEAN CORPUSCULAR VOLUME 81 fL (79-100); MONO # 0.5 x10^3/uL (0.0-1.1); MONO % 6 % (0-9); NEUT # 5.7 x10^3uL (1.8-7.7); NEUT % 69 % (31-73); PLATELET COUNT 389 x10^3/uL (140-400); RED BLOOD COUNT 4.64 x10^6/uL (3.50-5.40); RED CELL DISTRIBUTION WIDTH 16.8 % (11.5-14.5); WHITE BLOOD COUNT 8.3 x10^3/uL (4.0-11.0)
[2018-04-18] MEDS ORDERED: SCOPOLAMINE 1.5MG PATCH. TD SCH (11:19)
[2018-04-18 11:31] LABS: CALCIUM 9.4 mg/dL (8.5-10.1); CREATININE 0.7 mg/dL (0.6-1.0); GFR 82.5; POTASSIUM 3.6 mmol/L (3.5-5.1)
[2018-04-18 11:34] LABS: C-REACTIVE PROTEIN 30.2 mg/L (0-3.3)
[2018-04-18] MEDS ORDERED: PROPOFOL 20 ML IV ONE (12:57)
[2018-04-18] MEDS ORDERED: ONDANSETRON PF 4 MG/2 ML VIAL. ONE (12:57)
[2018-04-18] MEDS ORDERED: DEXAMETHASONE SOD PHOS 20 MG/5 ML VIAL. ONE (12:57)
[2018-04-18] MEDS ORDERED: LIDOCAINE 2% PF Vial for OR 5 ML VIAL. ONE (12:57)
[2018-04-18] MEDS ORDERED: fentaNYL PF VIAL 100 MCG/2 ML VIAL ONE (13:24)
[2018-04-18] MEDS ORDERED: GLYCOPYRROLATE 1 MG/5 ML VIAL. ONE (14:17)
[2018-04-18] MEDS ORDERED: ePHEDrine PF IN SALINE 50 MG/5 ML DISP.SYRIN IV ONE (14:17)
[2018-04-18] MEDS ORDERED: BUPIVAC MPF-EPI 0.5%-1:200000 30 ML VIAL. ONE (14:41)
[2018-04-18] MEDS ORDERED: SEVOFLURANE 61 TO 120 MINUTES. IH ONE (14:55)
--- NOTE | 2018-04-18 16:13 | PDOC4 ---
Operative Note Operative Note Date of Procedure: April 18, 2018 Pre-Op Diagnosis: Left knee open wound after total knee arthroplasty, 1 cm Post-Op Diagnosis: Same Procedure: Aspiration of the knee joint under anesthesia, incision and excision of the open wound, irrigation of the knee joint, and closure of the quadriceps tendon/fascia, subcutaneous tissue, and skin Surgeon: Chaparro Hairston MD Inspector Filters: None Anesthesia: General EBL: 10 mL Specimens Obtained: Needle aspiration of the joint before antibiotics were given, retrieved 1-2 mL bloody fluid, and was sent for aerobic, anaerobic, fungal and AFB in a specimen cup. Open synovial tissue biopsy, before antibiotics were given, also sent for aerobic, anaerobic, fungal, and AFB in specimen cup. Complications: none Drains: none Findings: Small open wound at the anterior knee. Synovial fluid seems to be leaking from a rent in the distal quadriceps tendon above the patella. Indications for Procedure: The patient is a 72-year-old woman who a total knee arthroplasty in October 2017. She has had ulceration and open wound near the incision, treated with wound care and topical antibiotics only. The open wound and ulcer have nearly healed but she has some persistent drainage which appears to be synovial fluid. I recommended evaluation in the operating room with sterile operative cultures to be taken of the knee to evaluate for infection, and likely secondary closure of the open wound. She and I discussed the risks benefits and alternatives. All of her questions about surgery were answered and she desires to proceed. Procedure in Detail: The patient was identified in the preoperative holding area. The correct left lower extremity was marked by me. The patient was taken to the operating room where general anesthesia was used. The patient was positioned supine on the operating table. No antibiotics were given initially. A timeout procedure was performed. A tourniquet was applied to the upper limb. I used a ChloraPrep device and prepared the skin of the lateral knee. I used sterile gloves and sterile technique, and aspirated the knee using a 16-gauge needle from a superolateral approach. There was minimal fluid. Under sterile technique I injected 10 mL of sterile saline into the knee joint, and then tried to retrieve that for more fluid for culture, and was unable to retrieve more than another 1 mL. The total amount of fluid was now sent as the first culture, the synovial fluid. The limb was now scrubbed thoroughly with chlorhexidine. ChloraPrep was used. Sterile drapes were applied with an impervious stockinette and Ioban drape. The 1 cm open wound was excised in elliptical fashion, using a 10 cm longitudinal incision following the old scar. There was no purulent drainage or evidence of infection. There is a rent in the distal quadriceps tendon which appears to be the source of the drainage, and there is a perforation between the distal quadriceps tendon and superior pole of the patella. I incised the quadriceps tendon longitudinally for 3 cm, for better access to the knee joint. A synovial biopsy was taken deep in the joint, but does not appear infected. The synovium was sent for cultures as above. Antibiotics were now given intravenously. I then did copious irrigation of the knee joint and the open wound region. I used 1 L of saline on the [employer] interpulse freelance court stenographer. I used Betadine lavage for 3 minutes. I used Bactisure irrigation 1 L. The final irrigation was 1 L of saline. Outer gloves were changed. The rent in the distal quadriceps tendon was repaired with #1 PDS [id number] sutures. I repaired the subcutaneous tissue with 2-0 PDS. I then used 3-0 Monocryl subcuticular closure. Finally the skin was reapproximated with 3-0 Prolene horizontal mattress sutures. A tourniquet had been applied but was never inflated. I did use skin anesthesia and used at the end intra-articular anesthesia with 0.5% bupivacaine with epinephrine. Bovie electrocautery was used as needed throughout the case for hemostasis. There were no apparent complications. Acticoat and a tam dressing were applied. Well keep the knee in full extension to allow the incision to heal. A knee immobilizer is applied. There were no apparent complications. CHAPARRO HAIRSTON MD Apr 18, 2018 16:13
[2018-04-18 16:15] VITALS: BP 138/59
[2018-04-18] MEDS ORDERED: CEPH-263 PO (16:20)
== END 2018-04-18 17:15 | disposition home or self-care (01) ==
LOC: SURG 10:29
PROVIDERS: ATTEND Orthopaedic Surgery
DX: S81.002A Unspecified open wound, left knee, initial encounter (principal); E03.9 Hypothyroidism, unspecified; E11.9 Type 2 diabetes mellitus without complications; E78.00 Pure hypercholesterolemia, unspecified; F41.9 Anxiety disorder, unspecified; G47.00 Insomnia, unspecified; Z98.890 Other specified postprocedural states; Z90.49 Acquired absence of other specified parts of digestive tract; Z96.651 Presence of right artificial knee joint; Z82.49 Family history of ischemic heart disease and other diseases of the circulatory system; Z83.3 Family history of diabetes mellitus; Z82.3 Family history of stroke; Z79.899 Other long term (current) drug therapy; Z88.8 Allergy status to other drugs, medicaments and biological substances; Z88.2 Allergy status to sulfonamides; X58.XXXA Exposure to other specified factors, initial encounter; Y93.89 Activity, other specified; Y92.89 Other specified places as the place of occurrence of the external cause; Y99.8 Other external cause status
CPT/HCPCS: 20610; 27385; 36415; 80048; 82962; 85025; 85651; 86140; 87071; 87075; 87102; 87116; 87186; A7015; J0696; J1100; J2001; J2405; J2704; J3010; J3490; J7030; J7120; A4461; C1769

== ENCOUNTER → 2018-07-27 | Outpatient (CLI) | payer BC, MEDICARE ==
[2018-05-09 15:00] VITALS: BP 135/68
[~2018-07-27] MED LIST changes: +ASPI325T11 PO; +ATOR10TA60 PO; +CEPH-263 PO; +DOXY100T PO; +FERR325T14 PO; -HYDROmorphone 2 MG/ML VIAL IV PRN; -IV RINGERS,LACTATED 1000ML 1,000 ML IV SCH; -LIDOCAINE 1% PF 2 ML VIAL. ID PRN; +METF500T16 PO; -MORPHINE SULFATE 4 MG/ML VIAL. IV PRN; -ONDANSETRON PF 4 MG/2 ML VIAL. IV PRN; +OXYC-411 PO; +OXYC1TAB22 PO; -PROCHLORPERAZINE 10 MG/2 ML VIAL. IV PRN; -fentaNYL PF VIAL 100 MCG/2 ML VIAL IV PRN
[2018-07-27 14:36] LABS: BASO % 0 % (0-3); EOS # 0.2 x10^3/uL (0.0-0.7); EOS % 3 % (0-3); HEMATOCRIT 44.7 % (36.0-47.0); HEMOGLOBIN 14.6 g/dL (12.0-15.5); LYMPH # 1.3 x10^3/uL (1.0-4.8); LYMPH % 22 % (24-48); MEAN CORPUSCULAR HEMOGLOBIN 27 pg (25-35); MEAN CORPUSCULAR HGB CONC 33 g/dL (31-37); MEAN CORPUSCULAR VOLUME 83 fL (79-100); MONO # 0.5 x10^3/uL (0.0-1.1); MONO % 8 % (0-9); NEUT # 4.1 x10^3uL (1.8-7.7); NEUT % 67 % (31-73); PLATELET COUNT 221 x10^3/uL (140-400); RED BLOOD COUNT 5.35 x10^6/uL (3.50-5.40); RED CELL DISTRIBUTION WIDTH 17.4 % (11.5-14.5); WHITE BLOOD COUNT 6.1 x10^3/uL (4.0-11.0)
[2018-07-27 14:41] LABS: PROTHROMBIN TIME PATIENT 12.3 SEC (11.7-14.0)
[2018-07-27 14:48] LABS: CALCIUM 10.1 mg/dL (8.5-10.1); CREATININE 0.9 mg/dL (0.6-1.0); GFR 61.7; POTASSIUM 3.4 mmol/L (3.5-5.1)
[2018-07-27 15:04] LABS: C-REACTIVE PROTEIN 1.6 mg/L (0-3.3)
[2018-07-27 16:15] LABS: BILIRUBIN,URINE NEGATIVE (NEG); CLARITY,URINE CLEAR; COLOR,URINE YELLOW; NITRITE,URINE NEGATIVE (NEG); PROTEIN,URINE NEGATIVE (NEG-TRACE); UROBILINOGEN,URINE 0.2 mg/dL (0.2 mg/dL)
[2018-07-27 16:35] LABS: BACTERIA,URINE 0 /HPF (0-FEW); SQUAMOUS EPITHELIAL CELL,UR FEW /LPF; WBC,URINE >40 /HPF (0-4)
[2018-07-27 23:08] LABS: HEMOGLOBIN A1C 5.9 % (4.8-5.6)
== END | disposition home or self-care (01) ==
LOC: SURGPAT 13:26
PROVIDERS: ATTEND Orthopaedic Surgery
DX: Z01.818 Encounter for other preprocedural examination (principal); Z89.522 Acquired absence of left knee; Z88.8 Allergy status to other drugs, medicaments and biological substances
CPT/HCPCS: 36415; 80048; 81001; 82040; 82306; 83036; 85025; 85610; 85651; 85730; 86140; 87086; 87641

== ENCOUNTER 2018-08-01 06:21 | Inpatient (IN) | payer BC, MEDICARE ==
--- NOTE | 2018-07-31 09:03 | PDOC1 ---
History and Physical Date of Admission Date of Admission 08/01/2018 Identification/Chief Complaint Chief Complaint Absence of left knee, antibiotic spacer Source Source: Chart review History of Present Illness History of Present Illness 72 year old who had total knee replacement 2018. She underwent removal of the total knee and placement of antibiotic spacer, on 05/03/18. Cultures showed Morganella morganii and Peptoniphilus asaccharolyticus at that time, but recent aspiration shows no fluid. Past Medical History Cardiovascular: HTN Psych: Anxiety Endocrine: Diabetes, Hypothyroidism Past Surgical History Past Surgical History Total knee replacement 11/02/17 DAIR (debridement, antibiotics, implant retention) on 04/18/18 Explantation of the total knee, placement of antibiotic spacer 05/01/18 Past Surgical History: Appendectomy, Cataract Removal, , Total knee replacement, Tonsillectomy Family History Family History: Cancer, Diabetes, Heart Disease, Hypertension, Stroke Social History ALCOHOL: none Drugs: None Current Medications Current Medications Active Scripts Active Reported Oxycodone-Acetaminophen 10-325 (Oxycodone Hcl/Acetaminophen) 1 Each Tablet 1 Each PO PRN Q6HRS PRN Ferrous Sulfate 325 Mg Tablet 325 Mg PO BID Atorvastatin Calcium 10 Mg Tablet 10 Mg PO HS Metformin Hcl 500 Mg Tablet 500 Mg PO BIDWMEALS Triamterene-Hctz 37.5-25 Mg Tb (Triamterene/Hydrochlorothiazid) 1 Each Tablet 0.5 Tab PO DAILY Ambien (Zolpidem Tartrate) 10 Mg Tablet 10 Mg PO HS PRN Losartan Potassium 50 Mg Tablet 50 Mg PO DAILY Vitamin D3 (Cholecalciferol (Vitamin D3)) 5,000 Unit Tablet 1 Tab PO DAILY Levothyroxine Sodium 100 Mcg Tablet 1 Tab PO UD Zoloft (Sertraline Hcl) 50 Mg Tablet 50 Mg PO DAILY Allergies Allergies: Coded Allergies: Iodinated Contrast- Oral and IV Dye (Verified Allergy, Intermediate, Hives, 04/18/18) hydroxyzine (Verified Allergy, Intermediate, 04/18/18) hyper sulfamethoxazole (Verified Allergy, Intermediate, Rash, 04/18/18) trimethoprim (Verified Allergy, Intermediate, Rash, 04/18/18) I S O L A T I O N *CONTACT* (Verified Allergy, Unknown, 04/25/18) MDRO- (R) Morganella morganii omeprazole (Verified Adverse Reaction, Intermediate, Nausea and Vomiting, 04/18/18) ROS General: No: Chills, Night Sweats HEENT: No: Heacaches Hematological and Lymphatic: No: Blood Clots Respiratory: No: Cough, Shortness of breath Cardiovascular: No Chest Pain, No Palpitations Genitourinary: No Dysuria, No Hematuria Musculoskeletal: Yes Gait Disturbance Neurological: No Bowel/Bladder ControlChng Physical Exam General: Alert, Cooperative HEENT: Atraumatic Heart: RRR Extremities: No edema, Normal pulses, Other (total knee incision is healed and no longer draining. There is no erythema or effusion. Minimal if any tenderness. Limited range of motion due to static spacer) Skin: No breakdown, No significant lesion Neuro: Normal speech, Sensation intact Labs Labs C-reactive protein 1.6 ESR 8 Images Images [facility] [address] [place] [address] IMAGING REPORT Signed PATIENT: MARICHUY KELSEY ACCOUNT: [id number] : 1945 LOCATION: [address] [place] [address] AGE: 72 SEX: F EXAM STATUS: ADM IN ORD. PHYSICIAN: CHAPARRO TADEO MD REASON: POST OP PROCEDURE: KNEE LEFT 2V Left knee 2 views. HISTORY: Postop left knee 2 views the left knee show removal of previous total joint prosthesis. There is antibiotic cement in the distal femur and proximal tibia as well as as a spacer at the knee joint. There is air in the soft tissues from surgery. There is no acute fracture. IMPRESSION: 1. Removal of previous prosthesis with placement of antibiotic cement at the knee joint. 2. No acute fracture. Electronically signed by: Fatmata Gillette MD (05/04/2018 12:16 AM) [facility] DICTATED and SIGNED BY: FATMATA GILLETTE MD DATE: 05/04/18 0015 VTE Prophylaxis Ordered VTE Prophylaxis Devices: Yes VTE Pharmacological Prophylaxi: Yes Assessment/Plan Assessment/Plan Absence of knee. Previous infected total knee arthroplasty The plan is revision total knee arthroplasty. She and I discussed potential risks of recurrent infection, bleeding, blood clots, neurovascular injury, or other potential surgical or anesthetic complications. She had a recent UTI suspected by the UA, with allergy to Bactrim so I p rescribed Levaquin last week. CHAPARRO TADEO MD July 31, 2018 09:03
[2018-08-01] VITALS (7 sets, daily range): BP systolic 128–157; BP diastolic 62–81
[~2018-08-01] VITALS: Ht 152.4 cm; Wt 89.4 kg
[~2018-08-01 06:21] MED LIST changes: -ASPI325T11 PO; -DOXY100T PO; +MORPHINE SULFATE 5 MG, KETOROLAC 30MG VIAL 30 MG, ROPIVacaine 0.5% PF 60 ML, EPINEPHrin... INT ART ONE; -OXYC1TAB22 PO; +TRANEXAMIC ACID 1,000 MG in IV NORMAL SALINE 50ML 50 ML INJ ONE; +VANCOMYCIN 1GM IVPB FOR OMNI 250 ML IV PRN
[2018-08-01] MEDS ORDERED: MORPHINE SULFATE 2 MG/ML VIAL. IV PRN ×2 (07:00→15:00)
[2018-08-01] MEDS ORDERED: ONDANSETRON PF 4 MG/2 ML VIAL. IV PRN (07:00)
[2018-08-01] MEDS ORDERED: fentaNYL PF VIAL 100 MCG/2 ML VIAL IV PRN ×4 (07:00→15:00)
[2018-08-01] MEDS ORDERED: PROCHLORPERAZINE 10 MG/2 ML VIAL. IV PRN (07:00)
[2018-08-01] MEDS ORDERED: HYDROmorphone 2 MG/ML VIAL IV PRN (07:00)
[2018-08-01] MEDS: IV RINGERS,LACTATED 1000ML 1,000 ML IV SCH ×2 (07:28→15:01)
[2018-08-01] MEDS: HYDROcodone/APAP 7.5/325MG 1 TAB TABLET PO PRN ×3 (07:29→22:15)
[2018-08-01] MEDS ORDERED: TRANEXAMIC ACID 1,000 MG in IV NORMAL SALINE 50ML 50 ML INJ ONE (08:00)
[2018-08-01] MEDS ORDERED: PROPOFOL 20 ML IV ONE (08:45)
[2018-08-01] MEDS ORDERED: LIDOCAINE 2% PF 5 ML VIAL. ONE (08:45)
[2018-08-01] MEDS ORDERED: DEXAMETHASONE SOD PHOS 4 MG/ML VIAL ONE (08:48)
[2018-08-01] MEDS ORDERED: ROCURONIUM 50 MG/5 ML VIAL. ONE (08:48)
[2018-08-01] MEDS ORDERED: fentaNYL PF VIAL 100 MCG/2 ML VIAL ONE ×2 (08:49→14:11)
[2018-08-01] MEDS ORDERED: SCOPOLAMINE 1.5MG PATCH. TD SCH (09:00)
[2018-08-01] MEDS ORDERED: TOBRAMYCIN POWDER 1.2 GM VIAL. ONE ×2 (10:28→10:29)
[2018-08-01] MEDS ORDERED: VANCOMYCIN 1 GM VIAL. ONE ×2 (10:29)
[2018-08-01] MEDS ORDERED: GLYCOPYRROLATE 1 MG/5 ML VIAL. ONE (10:57)
[2018-08-01] MEDS ORDERED: KETAMINE HCL IN NACL, ISO-OSM 50 MG/5 ML SYRINGE ONE (10:57)
[2018-08-01] MEDS ORDERED: diphenhydrAMINE 50 MG/ML VIAL ONE (10:59)
[2018-08-01] MEDS ORDERED: FAMOTIDINE 20 MG/2 ML VIAL ONE (10:59)
[2018-08-01] MEDS ORDERED: MIDAZOLAM HCL/PF 2 MG/2 ML VIAL. ONE (11:06)
[2018-08-01] MEDS ORDERED: SEVOFLURANE > 120 MINUTES. IH ONE (11:38)
[2018-08-01] MEDS: VANCOMYCIN 1 GM VIAL. ONE ×2 (12:00→12:28)
[2018-08-01] MEDS ORDERED: SCOPOLAMINE 1.5MG PATCH. TD ONE (14:45)
[2018-08-01] MEDS ORDERED: IV NORMAL SALINE 1000ML BAG 1,000 ML IV SCH (14:58)
--- NOTE | 2018-08-01 14:58 | PDOC4 ---
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 with presence of antibiotic impregnated cement spacer Z89.529 Infection and inflammatory reaction due to unspecified internal joint prosthesis, sequela T84.50XS Post-Op Diagnosis: same Procedure: Revision of total knee arthroplasty, femoral and entire tibial component CPT 44674 Surgeon: Chaparro Hairston MD Talkback Host: ALEJANDRO Valle Anesthesia: General EBL: 200 mL Specimens Obtained: left knee femur tissue (specimen cup) left knee tibia tissue (specimen cup) Complications: none Drains: Hemovac plus pain catheter Tourniquet time: 109 minutes Implants used: White and Nephew Size 3 Left Femur Legion Oxinium constrained femoral component Size 2 left Legion revision tibial baseplate Femur Legion press-fit stem straight 16 mm x 160 mm with 6 mm posterior offset Tibia Legion press-fit stem straight 13 mm x 160 mm Size 1-2 15 mm Legion constrained articular insert Indications for Procedure: The patient is a 72-year-old woman with a previously infected total knee arthroplasty. Since the diagnosis of infected total knee she has had removal of the total knee arthroplasty and placement of antibiotic spacer. She had 6 weeks of intravenous antibiotics, and clinical resolution of her infection. She was off antibiotics for several weeks without recurrence of any evidence of infection. Repeat aspiration of the knee off antibiotics was dry. I recommended revision arthroplasty and discussed the risks benefits and alternatives. We discussed the potential risk of repeat infection, along with the usual surgical risks of blood clots, bleeding, scarring, stiffness, fractures, or other potential surgical or anesthetic competitions. All of her questions were answered and she desired to proceed. A written consent was obtained. Procedure in Detail: The patient was identified in the preoperative holding area. The correct left lower extremity was marked by me. The patient was taken to the operating room where general anesthesia was used. The patient was positioned supine on the operating table. Preoperative antibiotics were given intravenously. I used both Vancomycin and Ancef. A timeout procedure was performed. A tourniquet was used on the upper thigh. The limb was thoroughly scrubbed from the tourniquet to the ankle with Chlorhexidine, then dried, and then ChloraPrep was used. I used the personal exhaust ventilated hoods system, as did my mate first, and the technician automated equipment. Sterile drapes were applied. An impervious stockinette and Ioban drape were used such that the skin was entirely covered. The limb was elevated to exsanguinate it. The tourniquet was inflated to 350 mmHg. The previous incision was opened sharply with a 10 blade scalpel. Bovie electrocautery was used for hemostasis. A medial parapatellar arthrotomy was created along the line of the previous arthrotomy. The patella was reflected carefully. The cement spacer was identified, and was removed using a cement osteotome and mallet, and careful fracturing of the cement into approximately 1 cm chunks to avoid any inadvertent bone fractures. All of the cement fragments were carefully removed. The knee was now flexed, and thorough excisional debridement and synovectomy was performed. There is no evidence of ongoing infection. An intramedullary tibial reamer was used, to reach intramedullary chatter. There does not appear to be any remaining bone infection. A culture was taken from the intramedullary canal of the tibia and sent for specimen culture. A tibial resection guide was applied, pinned to the upper tibia, and a freshen up cut was performed on the upper tibia. Additional debridement of the upper tibia bone was performed down to a nice freshened upper bone surface, removing prior scar tissue. The anterior portion of the tibial trial was aligned with the medial third of the tibial tubercle. Intramedullary and extramedullary alignment guides were used to confirm the neutral tibial cut. Sizing was performed. Saline irrigation was used, and the trial tibial components were inserted. Next the femur was prepared. The distal femur was debrided thoroughly, removing any soft tissue, with curet and rongeurs. An intramedullary biopsy was performed and sent as a specimen in a specimen cup for aerobic, anaerobic, fungal and AFB.There is no evidence of any ongoing infection visually. Intramedullary reaming was performed. The distal femur size was measured, and re-cut was made using the size 3 cutting block. Distal offset was required, posteriorly. Alignment was based on Thad's line, the anterior femoral cortex, and the transepicondylar axis. The trial femoral component was now assembled. Saline irrigation with the [employer] financial analysis advisor was used in the canal and around the femur, and then the trial femoral component was applied. A 6 mm posterior offset was used on the trial. The reaming for the cam was performed. The patella was assessed, and excisional debridement performed of scar tissue. There is only a thin wafer of patella bone remaining, not enough to support a revision component, and was left non-resurfaced. A lateral patella retinacular release was required as the patella tended to track laterally. The [employer] financial analysis advisor was used and copious irrigation was used throughout the knee and the femoral and tibial canals. The final implants were now opened on the back table, and assembled on the back table. A vacuum cement mixing device was used, and I used 3 packages of White and Nephew Rally HV cement, along with 2 g of vancomycin and 2.4 g of tobramycin. The cement gun was used. The final components were cemented, starting with the tibia, and next the femur. The tourniquet was released. Electrocautery was used for hemostasis. Periarticular injection was used. Final saline irrigation was used, while the cement hardened. The final polyethylene was chosen and tamped into place. The knee was reduced a final time. Range of motion, alignment and stability were again checked and appeared excellent. A Hemovac drain and pain catheter were placed. Intra-wound topical Vancomycin 1 gm was used. The capsule was next reapproximated with #1 PDS suture in a [id number]-gj-sfton fashion. Next #1 Stratafix suture was used in a running fashion for a watertight closure of the capsulotomy. The subcutaneous closure was with 2-0 PDS. My assistant property manager performed much of that closure. My assistant property manager then reapproximated the skin with #3-0 Stratafix. He applied Acticoat and a ALENA dressing. Needle and sponge counts were correct. There were no apparent complications. The patient returned to the recovery room in stable condition. . CHAPARRO HAIRSTON MD August 01, 2018 14:58
[2018-08-01] MEDS ORDERED: METOCLOPRAMIDE HCL 10 MG/2 ML VIAL. IV PRN (15:00)
[2018-08-01] MEDS ORDERED: DEXTROSE 50% 25 GM / 50ML DISP.SYRIN. IV PRN (15:00)
[2018-08-01] MEDS ORDERED: MORPHINE SULFATE 4 MG/ML VIAL. IV PRN (15:00)
[2018-08-01] MEDS ORDERED: CALCIUM CARBONATE 500 MG TAB.CHEW PO PRN (15:00)
[2018-08-01] MEDS ORDERED: INSULIN LISPRO 100 UNIT/ML 3ML VIAL. SQ ONE (15:00)
[2018-08-01] MEDS ORDERED: PROCHLORPERAZINE 5 MG TABLET. PO PRN (15:00)
[2018-08-01] MEDS ORDERED: 0.9 % SODIUM CHLORIDE 10 ML DISP.SYRIN. IV PRN (15:00)
[2018-08-01] MEDS ORDERED: diphenhydrAMINE 50 MG/ML VIAL IV PRN (15:00)
--- NOTE | 2018-08-01 15:30 | RAD ---
Three-view left knee study Clinical indications: Postoperative study. Left knee arthroplasty revision. FINDINGS: Total left knee arthroplasty is evident which is well aligned. No acute fracture or lytic process is seen. IMPRESSION: Total left knee arthroplasty revision. Electronically signed by: Taras Rodriguez MD (08/01/2018 3:27 PM) [place] [id number]
--- NOTE | 2018-08-01 16:40 | NUR ---
Arrived to unit by bed from PACU. Drowsy but awakens easily. No c/o at this time. ALENA dressing on left knee intact with yusef size shadowing on dressing and Hemovac drain. Able to wiggle toes easily, warm touch and pedal pulses present. DEWAYNE's on bilaterally. O2 at 2l per n/c. IVF's intact and infusing. Oriented to room and controls. Side rails up x's 2 with call light in reach. Spouse and sister at bedside. Cont. monitor.
[2018-08-01] MEDS ORDERED: oxyCODONE/APAP 5/325 1 TAB TABLET PO PRN (17:00)
[2018-08-01] MEDS: ONDANSETRON ODT 4 MG TAB.RAPDIS. PO SCH (17:19)
[2018-08-01] MEDS: ONDANSETRON PF 4 MG/2 ML VIAL. IV SCH (17:19)
[2018-08-01] MEDS ORDERED: VANCOMYCIN 1 GM in IV NORMAL SALINE 250ML 250 ML IV ONE (20:30)
[2018-08-01] MEDS: ASPIRIN ENTERIC COATED 325 MG TABLET.DR. PO SCH (20:42)
[2018-08-02 03:00] VITALS: BP 128/74
[2018-08-02] MEDS ORDERED: MAGNESIUM HYDROXIDE 2,400 MG/30 ML ORAL.SUSP. PO PRN (06:00)
[2018-08-02] MEDS: ONDANSETRON ODT 4 MG TAB.RAPDIS. PO SCH ×3 (06:00→12:00)
[2018-08-02] MEDS: ONDANSETRON PF 4 MG/2 ML VIAL. IV SCH ×3 (06:00→12:00)
[2018-08-02 06:31] VITALS: BP 131/67
[2018-08-02 06:35] LABS: HEMATOCRIT 36.1 % (36.0-47.0); HEMOGLOBIN 11.8 g/dL (12.0-15.5)
[2018-08-02 06:36] LABS: PROTHROMBIN TIME PATIENT 12.8 SEC (11.7-14.0)
[2018-08-02] MEDS ORDERED: NON FORMULARY ITEM (Zolpidem Tartrate (Ambien) 10 MG) PO PRN (07:15)
[2018-08-02] MEDS: LEVOTHYROXINE 100 MCG TABLET PO SCH (07:20)
[2018-08-02] MEDS: metFORMIN 500 MG TABLET PO SCH ×2 (07:20→16:57)
[2018-08-02] MEDS: SENNOSIDES/DOCUSATE 8.6/50MG TABLET. PO SCH (08:49)
[2018-08-02] MEDS: MULTIVITAMIN with MINERAL TABLET. PO SCH (08:49)
[2018-08-02] MEDS: CHOLECALCIFEROL (VITAMIN D3) 5,000 UNIT CAPSULE PO SCH (08:49)
[2018-08-02] MEDS: SERTRALINE 50 MG TABLET. PO SCH (08:49)
[2018-08-02] MEDS: ASPIRIN ENTERIC COATED 325 MG TABLET.DR. PO SCH ×2 (08:49→20:47)
[2018-08-02] MEDS: LOSARTAN POTASSIUM 50 MG TABLET. PO SCH (09:00)
[2018-08-02] MEDS: TRIAMTERENE/HCTZ 37.5/25MG TABLET. PO SCH (09:00)
[2018-08-02] MEDS: HYDROcodone/APAP 7.5/325MG 1 TAB TABLET PO PRN (09:04)
[2018-08-02] MEDS ORDERED: ONDANSETRON ODT 4 MG TAB.RAPDIS. PO PRN (12:00)
[2018-08-02] MEDS ORDERED: ONDANSETRON PF 4 MG/2 ML VIAL. IV PRN (12:00)
[2018-08-02 12:03] VITALS: BP 126/54
[2018-08-02] MEDS: oxyCODONE/APAP 5/325 1 TAB TABLET PO PRN ×2 (12:51→19:13)
[2018-08-02] MEDS ORDERED: BISACODYL 10 MG SUPP.RECT. PR PRN (16:00)
[2018-08-02 18:06] VITALS: BP 120/51
--- NOTE | 2018-08-02 19:54 | PDOC ---
PROGRESS NOTES Subjective Subjective Pain controlled but had quite a bit of pain with this surgery. No complaints. Objective Vital Signs Vital Signs Date Time Temp Pulse Resp B/P (MAP) Pulse Ox O2 Delivery O2 Flow Rate FiO2 08/02/18 19:13 20 91 Room Air 08/02/18 18:06 98.3 79 120/51 (74) 98.3 08/02/18 06:31 2.0 Physical Exam ALENA with spotty blood only. Hemovac and pain catheter both have been removed. Thigh and calf soft. Moderate ecchymosis, no blisters. Good active range of motion of foot including dorsiflexion and plantar flexion. Cap refill at toes intact. No signs of compartment syndrome, DVT or neurovascular injury. Labs Laboratory Tests Test 08/01/18 07:13 08/01/18 14:51 08/01/18 20:54 08/02/18 05:30 Glucose (Fingerstick) 116 mg/dL (70-99) 213 mg/dL (70-99) 163 mg/dL (70-99) Hemoglobin 11.8 g/dL (12.0-15.5) Hematocrit 36.1 % (36.0-47.0) Mean Corpuscular Hemoglobin Concent 33 g/dL (31-37) Prothrombin Time 12.8 SEC (11.7-14.0) Prothromb Time International Ratio 1.0 (0.8-1.1) Test 08/02/18 06:29 08/02/18 12:02 08/02/18 16:43 Glucose (Fingerstick) 119 mg/dL (70-99) 121 mg/dL (70-99) 119 mg/dL (70-99) Laboratory Tests Test 08/01/18 20:54 08/02/18 05:30 08/02/18 06:29 08/02/18 12:02 Glucose (Fingerstick) 163 mg/dL (70-99) 119 mg/dL (70-99) 121 mg/dL (70-99) Hemoglobin 11.8 g/dL (12.0-15.5) Hematocrit 36.1 % (36.0-47.0) Mean Corpuscular Hemoglobin Concent 33 g/dL (31-37) Prothrombin Time 12.8 SEC (11.7-14.0) Prothromb Time International Ratio 1.0 (0.8-1.1) Test 08/02/18 16:43 Glucose (Fingerstick) 119 mg/dL (70-99) Imaging Postop x-ray report reviewed, images independently reviewed. Satisfactory revision TKA without apparent complications. [facility] [address] [place] [address] IMAGING REPORT Signed PATIENT: MARICHUY KELSEY ACCOUNT: [id number] : 1945 LOCATION: [facility] AGE: 72 SEX: F EXAM STATUS: ADM IN ORD. PHYSICIAN: CHAPARRO TADEO MD REASON: postop left knee revision PROCEDURE: KNEE LEFT 2V Three-view left knee study Clinical indications: Postoperative study. Left knee arthroplasty revision. FINDINGS: Total left knee arthroplasty is evident which is well aligned. No acute fracture or lytic process is seen. IMPRESSION: Total left knee arthroplasty revision. Electronically signed by: Emery Rodriguez MD (08/01/2018 3:27 PM) [place] [id number] DICTATED and SIGNED BY: EMERY RODRIGUEZ MD DATE: 08/01/18 1527 Assessment Assessment POD 1 after revision TKA Plan Plan of Care Doing well after revision TKA. Intra-op cultures were taken, but I expect those will be negative. After 2 stage revision for infection, the current ortho literature supports ocean transportation intermediary po antibiotic suppression, minimum of 3 months. I will consult ID for recommendations for ocean transportation intermediary oral suppression. She had Vancomycin IV and Ancef IV at surgery and postop, plus Vancomycin 2 gms in the cement (which likely elutes slowly over 4 weeks) and 1 gram Vanco topically in the wound closure (also well supported in recent ortho literature on arthroplasty.) I will start Doxycycline for now, but will change per ID recs. CHAPARRO TADEO MD August 02, 2018 19:54
[2018-08-02] MEDS: DOXYCYCLINE HYCLATE 100 MG TABLET PO SCH (20:47)
[2018-08-02] MEDS: ATORVASTATIN CALCIUM 10 MG TABLET. PO SCH (20:47)
[2018-08-02] MEDS: ZOLPIDEM 5 MG TABLET. PO PRN (21:52)
[2018-08-03 04:45] LABS: HEMATOCRIT 34.3 % (36.0-47.0); HEMOGLOBIN 11.3 g/dL (12.0-15.5)
[2018-08-03 05:04] LABS: PROTHROMBIN TIME PATIENT 13.3 SEC (11.7-14.0)
[2018-08-03] MEDS: oxyCODONE/APAP 5/325 1 TAB TABLET PO PRN (05:28)
[2018-08-03 06:00] VITALS: BP 131/49
[2018-08-03] MEDS ORDERED: PROMETHAZINE 12.5 MG TABLET. PO SCH (08:30)
[2018-08-03] MEDS: PROMETHAZINE 12.5 MG TABLET. PO SCH ×2 (08:30→16:54)
--- NOTE | 2018-08-03 08:38 | PDOC ---
PROGRESS NOTES Subjective Subjective "had a rough night" per nursing. pain better after morphine. was asleep this morning but awakened for exam and therapy soon. Objective Vital Signs Vital Signs Date Time Temp Pulse Resp B/P (MAP) Pulse Ox O2 Delivery O2 Flow Rate FiO2 08/03/18 06:00 99.1 60 18 131/49 (76) 94 Room Air 99.1 08/02/18 23:45 2.0 Physical Exam Some bruising medially and laterally. No evidence of compartment syndrome. Calf soft NT. ALENA spotty drainage only. Slight drainage from drain site. Able to DF and PF foot without difficulty, and almost able to lift leg from bed. Labs Laboratory Tests Test 08/01/18 14:51 08/01/18 20:54 08/02/18 05:30 08/02/18 06:29 Glucose (Fingerstick) 213 mg/dL (70-99) 163 mg/dL (70-99) 119 mg/dL (70-99) Hemoglobin 11.8 g/dL (12.0-15.5) Hematocrit 36.1 % (36.0-47.0) Mean Corpuscular Hemoglobin Concent 33 g/dL (31-37) Prothrombin Time 12.8 SEC (11.7-14.0) Prothromb Time International Ratio 1.0 (0.8-1.1) Test 08/02/18 12:02 08/02/18 16:43 08/02/18 20:35 08/03/18 04:10 Glucose (Fingerstick) 121 mg/dL (70-99) 119 mg/dL (70-99) 152 mg/dL (70-99) Hemoglobin 11.3 g/dL (12.0-15.5) Hematocrit 34.3 % (36.0-47.0) Mean Corpuscular Hemoglobin Concent 33 g/dL (31-37) Prothrombin Time 13.3 SEC (11.7-14.0) Prothromb Time International Ratio 1.0 (0.8-1.1) Test 08/03/18 06:38 Glucose (Fingerstick) 118 mg/dL (70-99) Laboratory Tests Test 08/02/18 12:02 08/02/18 16:43 08/02/18 20:35 08/03/18 04:10 Glucose (Fingerstick) 121 mg/dL (70-99) 119 mg/dL (70-99) 152 mg/dL (70-99) Hemoglobin 11.3 g/dL (12.0-15.5) Hematocrit 34.3 % (36.0-47.0) Mean Corpuscular Hemoglobin Concent 33 g/dL (31-37) Prothrombin Time 13.3 SEC (11.7-14.0) Prothromb Time International Ratio 1.0 (0.8-1.1) Test 08/03/18 06:38 Glucose (Fingerstick) 118 mg/dL (70-99) Assessment Assessment POD 2 after 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 Gram stains from femur and tibia show no organisms and no WBCs on Gram Stain. Cultures pending. Plan Plan of Care Adjusted pain meds, added promethazine and Mobic. 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 I will recheck ESR and CRP. Discharge planning for tomorrow. CHAPARRO TADEO MD August 03, 2018 08:38
[2018-08-03] MEDS: LEVOTHYROXINE 100 MCG TABLET PO SCH (08:39)
[2018-08-03] MEDS: CHOLECALCIFEROL (VITAMIN D3) 5,000 UNIT CAPSULE PO SCH (08:39)
[2018-08-03] MEDS: SERTRALINE 50 MG TABLET. PO SCH (08:39)
[2018-08-03] MEDS: SENNOSIDES/DOCUSATE 8.6/50MG TABLET. PO SCH (08:39)
[2018-08-03] MEDS: MULTIVITAMIN with MINERAL TABLET. PO SCH (08:39)
[2018-08-03] MEDS: ASPIRIN ENTERIC COATED 325 MG TABLET.DR. PO SCH ×2 (08:39→21:08)
[2018-08-03] MEDS: metFORMIN 500 MG TABLET PO SCH ×2 (08:39→16:53)
[2018-08-03] MEDS: DOXYCYCLINE HYCLATE 100 MG TABLET PO SCH ×2 (08:39→21:07)
[2018-08-03] MEDS ORDERED: oxyCODONE/APAP 10/325 1 TAB TABLET PO PRN (08:45)
[2018-08-03] MEDS: LOSARTAN POTASSIUM 50 MG TABLET. PO SCH (08:45)
[2018-08-03] MEDS: TRIAMTERENE/HCTZ 37.5/25MG TABLET. PO SCH (08:45)
[2018-08-03] MEDS: MELOXICAM 7.5 MG TABLET PO SCH (08:53)
--- NOTE | 2018-08-03 09:07 | NUR ---
Duplicate order of Phenergan on MAR
[2018-08-03] MEDS: oxyCODONE/APAP 10/325 1 TAB TABLET PO PRN ×2 (09:57→13:43)
[2018-08-03 18:15] VITALS: BP 143/70
[2018-08-03] MEDS: ATORVASTATIN CALCIUM 10 MG TABLET. PO SCH (21:07)
[2018-08-03] MEDS: ZOLPIDEM 5 MG TABLET. PO PRN (21:08)
[2018-08-03] MEDS: HYDROcodone/APAP 7.5/325MG 1 TAB TABLET PO PRN (21:08)
[2018-08-03] MEDS: LACTOBACILLUS RHAMNOSUS GG 1 CAPSULE. PO SCH (21:08)
[2018-08-04] MEDS: PROMETHAZINE 12.5 MG TABLET. PO SCH (00:22)
[2018-08-04] MEDS: oxyCODONE/APAP 10/325 1 TAB TABLET PO PRN ×2 (02:21→08:18)
[2018-08-04 04:40] LABS: HEMATOCRIT 35.2 % (36.0-47.0); HEMOGLOBIN 11.2 g/dL (12.0-15.5)
[2018-08-04 04:52] LABS: PROTHROMBIN TIME PATIENT 12.3 SEC (11.7-14.0)
[2018-08-04] MEDS: LEVOTHYROXINE 100 MCG TABLET PO SCH (06:04)
[2018-08-04 06:20] VITALS: BP 123/60
[2018-08-04] MEDS: SENNOSIDES/DOCUSATE 8.6/50MG TABLET. PO SCH (08:10)
[2018-08-04] MEDS: LACTOBACILLUS RHAMNOSUS GG 1 CAPSULE. PO SCH (08:10)
[2018-08-04] MEDS: TRIAMTERENE/HCTZ 37.5/25MG TABLET. PO SCH (08:10)
[2018-08-04] MEDS: SERTRALINE 50 MG TABLET. PO SCH (08:10)
[2018-08-04] MEDS: ASPIRIN ENTERIC COATED 325 MG TABLET.DR. PO SCH (08:10)
[2018-08-04] MEDS: DOXYCYCLINE HYCLATE 100 MG TABLET PO SCH (08:10)
[2018-08-04 08:11] VITALS: BP 123/60
[2018-08-04] MEDS: CHOLECALCIFEROL (VITAMIN D3) 5,000 UNIT CAPSULE PO SCH (08:11)
[2018-08-04] MEDS: metFORMIN 500 MG TABLET PO SCH (08:11)
[2018-08-04] MEDS: MULTIVITAMIN with MINERAL TABLET. PO SCH (08:11)
[2018-08-04] MEDS: MELOXICAM 7.5 MG TABLET PO SCH (08:11)
[2018-08-04] MEDS: LOSARTAN POTASSIUM 50 MG TABLET. PO SCH (08:11)
--- NOTE | 2018-08-04 10:36 | PDOC ---
PROGRESS NOTES Subjective Subjective No complaints. Planning on discharge today to home. Objective Vital Signs Vital Signs Date Time Temp Pulse Resp B/P (MAP) Pulse Ox O2 Delivery O2 Flow Rate FiO2 08/04/18 09:18 Room Air 08/04/18 08:11 50 123/60 08/04/18 06:20 98.2 18 92 98.2 08/03/18 20:00 2.0 Physical Exam ALENA intact and dry with single dried blood spot on ALENA. Good AROM ankle. Calf soft and nontender. Minimal warmth or erythema. Mild ecchymosis near drain site, but no active drainage. Labs Laboratory Tests Test 08/02/18 12:02 08/02/18 16:43 08/02/18 20:35 08/03/18 04:10 Glucose (Fingerstick) 121 mg/dL (70-99) 119 mg/dL (70-99) 152 mg/dL (70-99) Hemoglobin 11.3 g/dL (12.0-15.5) Hematocrit 34.3 % (36.0-47.0) Mean Corpuscular Hemoglobin Concent 33 g/dL (31-37) Prothrombin Time 13.3 SEC (11.7-14.0) Prothromb Time International Ratio 1.0 (0.8-1.1) Test 08/03/18 06:38 08/03/18 12:25 08/03/18 16:34 08/04/18 04:30 Glucose (Fingerstick) 118 mg/dL (70-99) 105 mg/dL (70-99) 104 mg/dL (70-99) Hemoglobin 11.2 g/dL (12.0-15.5) Hematocrit 35.2 % (36.0-47.0) Mean Corpuscular Hemoglobin Concent 32 g/dL (31-37) Erythrocyte Sedimentation Rate 36 (0-25) Prothrombin Time 12.3 SEC (11.7-14.0) Prothromb Time International Ratio 0.9 (0.8-1.1) C-Reactive Protein, Quantitative 72.7 mg/L (0-3.3) Laboratory Tests Test 08/03/18 12:25 08/03/18 16:34 08/04/18 04:30 Glucose (Fingerstick) 105 mg/dL (70-99) 104 mg/dL (70-99) Hemoglobin 11.2 g/dL (12.0-15.5) Hematocrit 35.2 % (36.0-47.0) Mean Corpuscular Hemoglobin Concent 32 g/dL (31-37) Erythrocyte Sedimentation Rate 36 (0-25) Prothrombin Time 12.3 SEC (11.7-14.0) Prothromb Time International Ratio 0.9 (0.8-1.1) C-Reactive Protein, Quantitative 72.7 mg/L (0-3.3) Assessment Assessment POD #3 TKA revision Plan Plan of Care I thought I placed a consult in [employer] 1-2 days ago, but I don't see the order. I reentered an order for that consult today. I specifically remember typing out that I was consulting them for PO antibiotic choice for intermediate card tender suppression 3+ months. Hopefully Nicolette or Leonora can see her today or make a recommendation. I started Doxycycline, but if they recommend something different I will change it. Discharge planning for today. Continue PT and DVT prophylaxis. F/U 10-14 days in office. CHAPARRO TADEO MD August 04, 2018 10:36
--- NOTE | 2018-08-04 10:53 | PDOC ---
Provider Note Provider Note Clin Orthop Relat Res. 2017 Mar;475(1):56-61. doi: 10.1007/[id number]. The Puma Leung MD, Award: Oral Antibiotics Reduce Reinfection After Two- Stage Exchange: A Multicenter, Randomized Controlled Trial. Srinath JM1, Ga E2, Lilo M2, Belen J2, Bustos E3, Santillan C4, [place] K2, Uri K5, Rosfifi B5, Alise R5, Lyric Hidalgo5, Brunilda Coker CJ6; K[employer]. Author information Abstract BACKGROUND: Many patients develop recurrent periprosthetic joint infection after two-stage exchange arthroplasty of the hip or knee. One potential but insufficiently tested strategy to decrease the risk of persistent or recurrent infection is to administer additional antibiotics after the second-stage reimplantation. QUESTIONS/PURPOSES: (1) Does a 3-month course of oral antibiotics decrease the risk of failure secondary to infection after a two-stage exchange? (2) Are there any complications related to the administration of oral antibiotics after a two- stage exchange? (3) In those patients who develop a reinfection, is the infecting organism different from the initial infection? METHODS: Patients at seven centers randomized to receive 3 months of oral antibiotics or no further antibiotic treatment after operative cultures after the second-stage reimplantation were negative. Adult patients undergoing two-stage hip or knee revision arthroplasty for a periprosthetic infection who met Musculoskeletal Infection Society (MSIS) criteria for infection at the first stage were included. Oral antibiotic therapy was tailored to the original infecting organis m(s) in consultation with an infectious disease specialist. MSIS criteria as used by the treating surgeon defined failure. Surveillance of patients for complications, including reinfection, occurred at 3 weeks, 6 weeks, 3 months, 12 months, and 24 months. If an organism demonstrated the same antibiotic sensitivities as the original organism, it was considered the same organism; no DNA subtyping was performed. Analysis was performed as intent to treat with all randomized patients included in the groups to which they were randomized. A log- rank survival curve was used to analyze the primary outcome of reinfection. At planned interim analysis (enrollment is ongoing), 59 patients were successfully randomized to the antibiotic group and 48 patients to the control group. Fifty- seven patients had an infection after TKA and 50 after a HELLEN. There was no minimum followup for inclusion in this analysis. The mean followup was 14 months in the antibiotic group and 10 months in the control group. RESULTS: Patients treated with oral antibiotics failed secondary to infection less frequently than those not treated with antibiotics (5% [three of 59] versus 19% [nine of 48]; hazard ratio, 4.37; 95% confidence interval, 1.297-19.748; p = 0.016). Three patients had an adverse reaction to the oral antibiotics severe enough to cause them to stop taking the antibiotics early, and four patients who were randomized to that group did not take the antibiotics as directed. With the numbers available, there were no differences between the study groups in terms of the likelihood that an infection after treatment would be with a new organism (eight of nine in the control group versus one of three in the treatment group, p = 0.087). CONCLUSIONS: This multicenter randomized trial suggests that at short-term followup, the addition of 3 months of oral antibiotics appeared to improve infection-free survival. As a planned interim analysis, however, these results may change as the study reaches closure and the safety profile may yet prove risky. Further followup of this cohort of patients will be necessary to determine whether these preliminary results are durable over time. LEVEL OF EVIDENCE: Level I, therapeutic study. PMID: [id number] PMCID: [id number] DOI: 10.1007/[id number] CHAPARRO TADEO MD August 04, 2018 10:53
[2018-08-04] MEDS ORDERED: DOXY100T PO (10:57)
[2018-08-04] MEDS ORDERED: OXYC1TAB22 PO (10:57)
[2018-08-04] MEDS ORDERED: ASPI325T11 PO (10:59)
--- NOTE | 2018-08-04 11:02 | PDOC3 ---
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, admitted with antibiotic spacer for revision TKA Aftercare after left total knee arthroplasty Brief Hospital Course Allergies Allergies Coded Allergies Type Severity Reaction Last Updated Verified Iodinated Contrast- Oral and IV Dye Allergy Intermediate Hives 08/01/18 Yes hydroxyzine Allergy Intermediate 08/01/18 Yes sulfamethoxazole Allergy Intermediate Rash 08/01/18 Yes trimethoprim Allergy Intermediate Rash 08/01/18 Yes omeprazole Adverse Reaction Intermediate Nausea and Vomiting 08/01/18 Yes Vital Signs Vital Signs Date Time Temp Pulse Resp B/P (MAP) Pulse Ox O2 Delivery O2 Flow Rate FiO2 08/04/18 09:18 Room Air 08/04/18 08:11 50 123/60 08/04/18 06:20 98.2 18 92 98.2 08/03/18 20:00 2.0 Lab Results Laboratory Tests Test 08/02/18 12:02 08/02/18 16:43 08/02/18 20:35 08/03/18 04:10 Glucose (Fingerstick) 121 mg/dL (70-99) 119 mg/dL (70-99) 152 mg/dL (70-99) Hemoglobin 11.3 g/dL (12.0-15.5) Hematocrit 34.3 % (36.0-47.0) Mean Corpuscular Hemoglobin Concent 33 g/dL (31-37) Prothrombin Time 13.3 SEC (11.7-14.0) Prothromb Time International Ratio 1.0 (0.8-1.1) Test 08/03/18 06:38 08/03/18 12:25 08/03/18 16:34 08/04/18 04:30 Glucose (Fingerstick) 118 mg/dL (70-99) 105 mg/dL (70-99) 104 mg/dL (70-99) Hemoglobin 11.2 g/dL (12.0-15.5) Hematocrit 35.2 % (36.0-47.0) Mean Corpuscular Hemoglobin Concent 32 g/dL (31-37) Erythrocyte Sedimentation Rate 36 (0-25) Prothrombin Time 12.3 SEC (11.7-14.0) Prothromb Time International Ratio 0.9 (0.8-1.1) C-Reactive Protein, Quantitative 72.7 mg/L (0-3.3) Laboratory Tests Test 08/03/18 12:25 08/03/18 16:34 08/04/18 04:30 Glucose (Fingerstick) 105 mg/dL (70-99) 104 mg/dL (70-99) Hemoglobin 11.2 g/dL (12.0-15.5) Hematocrit 35.2 % (36.0-47.0) Mean Corpuscular Hemoglobin Concent 32 g/dL (31-37) Erythrocyte Sedimentation Rate 36 (0-25) Prothrombin Time 12.3 SEC (11.7-14.0) Prothromb Time International Ratio 0.9 (0.8-1.1) C-Reactive Protein, Quantitative 72.7 mg/L (0-3.3) Brief Hospital Course 72 year old with antibiotic spacer in her left knee, but no joint. Admitted for revision total knee arthroplasty. Intraoperative findings were benign, and cultures are NTD. The patient underwent left revision total knee arthroplasty under general anesthesia the day of admission. Perioperative antibiotics and DVT prophylaxis were used. Postoperatively physical therapy and case management were consulted. The patient progressed and is stable for discharge. Discharge Information Condition at Discharge: Stable Follow Up: Weeks Disposition/Orders: D/C to Home w/ HH Scheduled Aspirin (Aspirin Ec), 1 TAB PO BID Atorvastatin Calcium (Atorvastatin Calcium), 10 MG PO HS, (Reported) Cholecalciferol (Vitamin D3) (Vitamin D3), 1 TAB PO DAILY, (Reported) Doxycycline Hyclate (Doxycycline Hyclate), 100 MG PO BID Levothyroxine Sodium (Levothyroxine Sodium), 1 TAB PO UD, (Reported) Losartan Potassium (Losartan Potassium), 50 MG PO DAILY, (Reported) Metformin Hcl (Metformin Hcl), 500 MG PO BIDWMEALS, (Reported) Sertraline Hcl (Zoloft), 50 MG PO DAILY, (Reported) Triamterene/Hydrochlorothiazid (Triamterene-Hctz 37.5-25 Mg Tb), 0.5 TAB PO DAILY, (Reported) Scheduled PRN Oxycodone/Apap 10-325 (Percocet 10-325 Mg Tablet ), 1-2 TAB PO PRN Q4HRS PRN for PAIN Zolpidem Tartrate (Ambien), 10 MG PO HS PRN for INSOMNIA, (Reported) Discontinued Medications Ferrous Sulfate (Ferrous Sulfate), 325 MG PO BID, (Reported) Oxycodone Hcl/Acetaminophen (Oxycodone-Acetaminophen 10-325), 1 EACH PO PRN Q6HRS PRN for PAIN, (Reported) Patient Instructions Patient Instructions Patient Instructions Continue to WBAT with walker. Keep dressing dry and intact. F/U with Dr Hairston in 10-14 days. Call for appointment. Physical therapy for TKA Continue DVT prophylaxis. CHAPARRO HAIRSTON MD August 04, 2018 11:02
--- NOTE | 2018-08-04 11:04 | SNU/HH DC ---
DISCHARGE ORDERS DISCHARGE INFORMATION: DISCHARGE DATE: August 04, 2018 FINAL DIAGNOSIS revision left knee arthroplasty (previous infected total knee, had a two stage revision) CONDITION ON DISCHARGE: Stable CODE STATUS: Code Status: Full FPC: SNF STAY <30 DAYS: Yes HOSPICE: HOSPICE: No HOSPICE EVAL & TREAT: No POST DISCHARGE ORDERS: ACTIVITY ORDERS: Activity as tolerated, Progressive ambulation WEIGHT BEARING STATUS: As tolerated BATHING ORDERS: Shower-keep dressing dry, No Tub Bath until see DIET AFTER DISCHARGE: Regular WOUND/INCISION CARE: Ice to area for comfort, Keep wound/cast CDI, Do not change dressing, Reinforce dressing PRN OTHER WOUND INSTRUCTIONS: DO NOT change ALENA dressing. It is to remain in place for two weeks CHECKS AFTER DISCHARGE: CHECKS AFTER DISCHARGE: Check blood press - daily, Check blood sugar, ac/hs FOLLOW-UP: ADDITIONAL FOLLOW-UP: Dr Hairston in 10-14 days [phone] TREATMENT/EQUIPMENT ORDERS: ADAPTIVE EQUIPMENT NEEDED: None Physical Therapy For: Evalulation/Treatment Occupational Therapy For: Evaluation/Treatment DISCHARGE MEDICATIONS: Home Meds Active Scripts Aspirin (ASPIRIN EC) 325 Mg Tablet., 1 TAB PO BID for prevent blood clots for 30 Days, #60 TAB 0 Refills Prov:CHAPARRO HAIRSTON MD 08/04/18 Doxycycline Hyclate (DOXYCYCLINE HYCLATE) 100 Mg Tablet, 100 MG PO BID for Prevent TKA infection for 90 Days, #180 TAB Take on tablet twice a day Prov:CHAPARRO HAIRSTON MD 08/04/18 Oxycodone/Apap 10-325 (PERCOCET 10-325 MG TABLET ) 1 Each Tablet, 1-2 TAB PO PRN Q4HRS PRN for PAIN for 14 Days, #80 TAB Take one or two tablets by mouth, every 4 hours as needed for pain Prov:CHAPARRO HAIRSTON MD 08/04/18 Reported Medications Atorvastatin Calcium (ATORVASTATIN CALCIUM) 10 Mg Tablet, 10 MG PO HS for FOR CHOLESTEROL, #30 TAB 0 Refills 07/27/18 Metformin Hcl (METFORMIN HCL) 500 Mg Tablet, 500 MG PO BIDWMEALS for ANTI- DIABETIC, TAB 0 Refills 07/27/18 Triamterene/Hydrochlorothiazid (TRIAMTERENE-HCTZ 37.5-25 MG TB) 1 Each Tablet, 0.5 TAB PO DAILY for HYPERTENSION, TAB 03/23/18 Zolpidem Tartrate (AMBIEN) 10 Mg Tablet, 10 MG PO HS PRN for INSOMNIA, TAB 0 Refills 03/23/18 Losartan Potassium (LOSARTAN POTASSIUM) 50 Mg Tablet, 50 MG PO DAILY, TAB 12/21/17 Cholecalciferol (Vitamin D3) (VITAMIN D3) 5,000 Unit Tablet, 1 TAB PO DAILY for SUPPLEMENT, #30 TAB 08/12/15 Levothyroxine Sodium (LEVOTHYROXINE SODIUM) 100 Mcg Tablet, 1 TAB PO UD for HYPOTHYROIDISM, #90 TAB 3 Refills 08/12/15 Sertraline Hcl (ZOLOFT) 50 Mg Tablet, 50 MG PO DAILY for ANTI-DEPRESSANT, TAB 0 Refills 08/12/15 Discontinued Reported Medications Oxycodone Hcl/Acetaminophen (OXYCODONE-ACETAMINOPHEN 10-325) 1 Each Tablet, 1 EACH PO PRN Q6HRS PRN for PAIN, TAB 0 Refills 07/27/18 Ferrous Sulfate (FERROUS SULFATE) 325 Mg Tablet, 325 MG PO BID for TO TREAT ANEMIA, TAB 07/27/18 CHAPARRO HAIRSTON MD August 04, 2018 11:04
[2018-08-04] MEDS: HYDROcodone/APAP 7.5/325MG 1 TAB TABLET PO PRN (15:09)
--- NOTE | 2018-08-04 16:10 | NUR ---
Patient left the facility in a wheelchair with her sister and by her side around 1610. Discharge education was completed by this nurse, therapy, and Dr Hairston. Dr Hairston verified with Dr Iftikhar Will over the phone about the patients PO antibiotics prior to discharge. Scripts given for aspirin, percocet 10-325, and doxycycline. Instructions given to the patient and her sister about how to care for her ALENA dressing. Home health and outpatient therapy were both arranged by the case checker prior to discharge. No concerns noted upon discharge. patient left with all of her belongings.
== END 2018-08-04 16:10 | disposition home health service (06) | DRG 468 ==
LOC: OPSVCIP 06:21 → 4 SOUTHEST 16:40
PROVIDERS: ADMIT Orthopaedic Surgery; ATTEND Orthopaedic Surgery
PROC: 0SPD08Z Removal of Spacer from Left Knee Joint, Open Approach (ICD-10-PCS; 2018-08-01)
PROC: 0QBK0ZX Excision of Left Fibula, Open Approach, Diagnostic (ICD-10-PCS; 2018-08-01)
PROC: 0QBH0ZX Excision of Left Tibia, Open Approach, Diagnostic (ICD-10-PCS; 2018-08-01)
PROC: 0SRD069 Replacement of Left Knee Joint with Oxidized Zirconium on Polyethylene Synthetic Substitute, Cemented, Open Approach (ICD-10-PCS; principal; 2018-08-01 09:00)
DX: Z47.33 Aftercare following explantation of knee joint prosthesis (principal); I10 Essential (primary) hypertension; F41.9 Anxiety disorder, unspecified; E03.9 Hypothyroidism, unspecified; E11.9 Type 2 diabetes mellitus without complications; Z83.3 Family history of diabetes mellitus; Z82.49 Family history of ischemic heart disease and other diseases of the circulatory system; Z82.3 Family history of stroke; Z88.2 Allergy status to sulfonamides; Z88.8 Allergy status to other drugs, medicaments and biological substances; Z91.041 Radiographic dye allergy status
CPT/HCPCS: 36415; 73560; 82962; 85014; 85018; 85610; 85651; 86140; 86850; 86900; 86901; 87071; 87075; 87102; 87116; A7015; C1713; J0171; J0696; J1100; J1200; J1815; J1885; J2001; J2250; J2270; J2704; J2795; J3010; J3260; J3370; J3490; J7030; J7050; J7120; Q0169; 97116; 97150; 97530; 97535; A4461; C1769